=== PATIENT | female | born 1955 | race American Indian/Alaskan Native ===

== ENCOUNTER 2016-09-25 21:51 | Emergency (ER) | payer BC, OTHER ==
[2016-09-25 22:06] VITALS: BP 132/73
[2016-09-25 22:45] LABS: Anion Gap 19 mmol/L; BUN/Creatinine Ratio 25.55; Blood Urea Nitrogen 23 mg/dL (7-17); Calcium 8.6 mg/dL (8.4-10.2); Carbon Dioxide 21 mmol/L (22-30); Chloride 101.9 mmol/L (98-107); Glucose 140 mg/dL (65-100); Potassium 3.9 mmol/L (3.6-5.0); Sodium 138 mmol/L (137-145)
[2016-09-25 22:58] LABS: Basophils % (Auto) 0.4 % (0.0-1.8); Eosinophils % (Auto) 2.4 % (0.0-4.3); Hematocrit 40.3 % (30.3-42.9); Hemoglobin 13.2 gm/dl (10.1-14.3); Mean Corpuscular HGB Conc 33 % (30-34); Mean Corpuscular Hemoglobin 30 pg (28-32); Mean Corpuscular Volume 92 fl (79-97); Platelet Count 271 K/mm3 (140-440); Red Blood Count 4.38 M/mm3 (3.65-5.03)
[2016-09-25] MEDS: DUONEB 0.5 MG-3 MG/3 ML SOLN IH ONE (23:16)
--- NOTE | 2016-09-26 00:18 | Emergency Department Report ---
ED Shortness of Breath HPI - General Chief Complaint: Dyspnea/Respdistress Stated Complaint: ASTHMA Time Seen by Provider: 09/25/16 22:33 Source: patient, EMS Mode of arrival: Stretcher Limitations: No Limitations - History of Present Illness Initial Comments: 60-year-old female with history of asthma with prior intubation a few years ago presenting today because of shortness of breath. Patient states that earlier today she started having a little bit of a cough and nasal congestion. She took some of her inhaler but was not improving. Called EMS who gave her steroids and albuterol with significant improvement. By the time she is coming here she is minimally symptomatic. No fevers or chills. He sees a cuffer regularly. - Related Data Previous Rx's Medication Instructions Recorded Last Taken Type predniSONE [Deltasone] 50 mg PO QDAY #5 tab 09/26/16 Unknown Rx Allergies Allergy/AdvReac Type Severity Reaction Status Date / Time No Known Allergies Allergy Verified 04/16/16 09:43 ED Review of Systems ROS: Stated complaint: ASTHMA Other details as noted in HPI Comment: All other systems reviewed and negative Constitutional: denies: chills, fever ENT: congestion Respiratory: cough Cardiovascular: denies: chest pain Gastrointestinal: denies: abdominal pain, nausea, vomiting Genitourinary: denies: urgency, dysuria Neurological: denies: headache Psychiatric: denies: anxiety ED Past Medical Hx - Past Medical History Previous Medical History?: Yes Hx Hypertension: Yes Hx Asthma: Yes - Surgical History Past Surgical History?: No - Social History Smoking Status: Never Smoker Substance Use Type: None - Medications Home Medications: Home Medications Medication Instructions Recorded Confirmed Last Taken Type predniSONE [Deltasone] 50 mg PO QDAY #5 tab 09/26/16 Unknown Rx ED Physical Exam - General Limitations: No Limitations General appearance: alert, in no apparent distress - Head Head exam: Present: atraumatic - Eye Eye exam: Present: normal appearance - ENT ENT exam: Present: normal exam - Respiratory Respiratory exam: Present: other (saturating 99% on room air, mild expiratory wheezing in all lung valencia). Absent: respiratory distress, stridor - Cardiovascular Cardiovascular Exam: Present: regular rate, normal rhythm - GI/Abdominal GI/Abdominal exam: Present: soft. Absent: distended, tenderness - Extremities Exam Extremities exam: Present: normal inspection - Neurological Exam Neurological exam: Present: alert, oriented X3 - Psychiatric Psychiatric exam: Present: normal affect - Skin Skin exam: Present: intact ED Course Vital Signs 09/25/16 09/25/16 09/25/16 22:02 22:30 23:16 Temperature 98.4 F Pulse Rate 106 H Pulse Rate [ 99 H Anterior Bilateral Throughout] Respiratory 20 24 Rate Respiratory 18 Rate [Anterior Bilateral Throughout] Blood Pressure 132/73 O2 Sat by Pulse 98 Oximetry 09/25/16 23:30 Temperature Pulse Rate Pulse Rate [ 98 H Anterior Bilateral Throughout] Respiratory Rate Respiratory 18 Rate [Anterior Bilateral Throughout] Blood Pressure O2 Sat by Pulse Oximetry ED Medical Decision Making - Lab Data Result diagrams: 09/25/16 22:40 09/25/16 22:11 - Medical Decision Making Chest x-ray, and labs reordered, realizes ordered Chest x-ray does not show any clear infiltrate, labs unremarkable other than mild leukocytosis, mild dehydration Symptoms significantly improved, no respiratory distress, patient saturating well on room air, stable for discharge Critical care attestation.: If time is entered above; I have spent that time in minutes in the direct care of this critically ill patient, excluding procedure time. ED Disposition Clinical Impression: Asthma exacerbation Disposition: DISCHARGED TO HOME OR SELFCARE Is pt being admited?: No Does the pt Need Aspirin: No Condition: Stable Additional Instructions: Please follow up with the primary care doctor and cuffer in the next 3-5 days. Return to emergency room if your symptoms significantly worsen or develop new symptoms. Prescriptions: predniSONE [Deltasone] 50 mg PO QDAY #5 tab Referrals: PRIMARY CARE, [Primary Care Provider] - 3-5 Days Time of Disposition: 00:12
--- NOTE | 2016-09-26 08:16 | XRay Report ---
ROUTINE CHEST, TWO VIEWS: History: Shortness of breath. PA and lateral views demonstrate the heart and mediastinal contour to be of normal size and shape. The lungs are clear and fully expanded and the soft tissues and bony structures are normal. IMPRESSION: Normal study.
== END 2016-09-26 00:45 | disposition home or self-care (01) ==
LOC: ED 21:51
DX: J45.901 Unspecified asthma with (acute) exacerbation (principal); I10 Essential (primary) hypertension
CPT/HCPCS: 36415; 71020; 80048; 84484; 85025; 94640; 99284

== ENCOUNTER 2016-12-20 11:57 | Outpatient (CLI) | payer BC ==
--- NOTE | 2016-12-20 12:30 | XRay Report ---
ROUTINE CHEST, TWO VIEWS: HISTORY: Shortness of breath, COPD. The trachea, heart, mediastinal contour, lung valencia and bony thorax are unremarkable. IMPRESSION: Unremarkable chest x-ray.
== END 2016-12-20 11:58 | disposition home or self-care (01) ==
LOC: XRAY 11:57
PROVIDERS: ATTEND Family Medicine
DX: J44.9 Chronic obstructive pulmonary disease, unspecified (principal); J45.909 Unspecified asthma, uncomplicated; I10 Essential (primary) hypertension
CPT/HCPCS: 71020

== ENCOUNTER 2017-04-04 06:03 | Day surgery (SDC) | payer BC ==
[2017-04-04] MEDS ORDERED: WATER FOR IRRIG STERILE IR ONE (07:06)
[2017-04-04] MEDS ORDERED: DIPRIVAN 10 MG/ML IV ONE ×2 (07:17)
--- NOTE | 2017-04-04 08:02 | Anesthesia Consultation ---
Anesthesia Consult and Med Hx Date of service: 04/04/17 - Airway Anesthetic Teeth Evaluation: Good ROM Head & Neck: Adequate Mental/Hyoid Distance: Adequate Mallampati Class: Class II Intubation Access Assessment: Probably Good - Pulmonary Exam CTA: Yes - Cardiac Exam Cardiac Exam: RRR Anesthetic Concerns: A few missing teeth - Pre-Operative Health Status ASA Pre-Surgery Classification: ASA3 Proposed Anesthetic Plan: MAC - Pulmonary Hx Smoking: No (NEVER SMOKER) Hx Asthma: Yes (occasional steroid use) COPD: Yes - Cardiovascular System Hx Hypertension: Yes - Other Systems Hx Alcohol Use: Yes (OCCASIONALLY) Hx Obesity: Yes
--- NOTE | 2017-04-04 08:03 | Anesthesia Day of Surgery ---
Anesthesia Day of Surgery - Day of Surgery Patient Examined: Yes Patient H&P Reviewed: Yes Patient is NPO: Yes
[2017-04-04] MEDS ORDERED: NACL 0.9% 1000 ML 1,000 ML IV SCH (09:00)
--- NOTE | 2017-04-04 09:24 | Short Stay Summary ---
Short Stay Documentation - Allergies and Medications Current Medications: Allergies No Known Allergies Allergy (Verified 04/16/16 09:43) Home Medications Medication Instructions Recorded Confirmed Last Taken Type predniSONE [Deltasone] 50 mg PO QDAY #5 tab 09/26/16 04/04/17 Unknown Rx ALBUTEROL Inhaler 2 puff INHALATION BID 04/03/17 04/04/17 04/03/17 History Advair 100-50 Diskus 2 puff INHALATION BID 04/03/17 04/04/17 04/04/17 History Lisinopril 20 mg PO DAILY 04/03/17 04/04/17 04/03/17 History Montelukast 10 mg PO DAILY 04/03/17 04/04/17 04/03/17 History amLODIPine 5 mg PO DAILY 04/03/17 04/04/17 04/03/17 History Active Medications Sodium Chloride (Nacl 0.9% 1000 Ml) 1,000 mls @ 50 mls/hr IV DIRECT MARK Last Admin: 04/04/17 08:46 Dose: 50 mls/hr - Brief post op/procedure progress note Date of procedure: 04/04/17 Pre-op diagnosis: colon cancer screening Post-op diagnosis: same (1. Internal hemorrhoids 2. Poor prep) Procedure: colonoscopy Anesthesia: MAC Findings: as above Surgeon: ANIL NAVA Estimated blood loss: none Pathology: none Condition: stable - Disposition Condition at discharge: Stable Disposition: DC-01 TO HOME OR SELFCARE Short Stay Discharge Plan Weight Bearing Status: Full Weight Bearing Diet: regular Follow up with: DAMIEN DANIELS JR, MD [Primary Care Provider] - 7 Days
[2017-04-04 09:50] VITALS: BP 132/70
--- NOTE | 2017-04-04 10:16 | Post Anesthesia Evaluation ---
- Post Anesthesia Evaluation Patient Participated: Yes Airway Patent: Yes Stable Respiratory Function: Yes Temp > 96.8F: Yes Pain Manageable: Yes Adequeate Hydration: Yes Anesthesia Complications: No
== END 2017-04-04 06:04 | disposition home or self-care (01) ==
LOC: GIO 06:03
PROVIDERS: ATTEND Internal Medicine Gastroenterology
DX: Z12.11 Encounter for screening for malignant neoplasm of colon (principal); K64.0 First degree hemorrhoids; J44.9 Chronic obstructive pulmonary disease, unspecified; I10 Essential (primary) hypertension; E66.9 Obesity, unspecified; Z68.36 Body mass index [BMI] 36.0-36.9, adult
CPT/HCPCS: 45378; J2704; J7030

== ENCOUNTER 2017-06-24 06:37 | Emergency (ER) | payer BC ==
[2017-06-24] MEDS ORDERED: DUONEB *Not for PRN Use IH ONE (07:12)
--- NOTE | 2017-06-24 07:15 | Emergency Department Report ---
ED General Adult HPI - General Chief complaint: Dyspnea/Respdistress Stated complaint: ANN Time Seen by Provider: 06/24/17 07:05 Source: patient Mode of arrival: Stretcher Limitations: No Limitations - History of Present Illness Initial comments: This is a patient with COPD and exacerbation of the last day. She states he's had a scant amount of yellow sputum and feels as if she had a cold. She denies chest pain. She denies leg swelling. She's had no fever or chills. She denies abdominal pain. She's had no recent travel. She denies any history of cardiovascular disease. The patient was given magnesium albuterol nebs and Solu-Medrol in the field. She arrives in the emergency department with persistent wheezing but is not in respiratory distress. -: Gradual, hour(s) Severity scale (0 -10): 0 Associated Symptoms: denies other symptoms, shortness of breath (wheezing) Treatments Prior to Arrival: none - Related Data Home Medications Medication Instructions Recorded Confirmed Last Taken ALBUTEROL Inhaler 2 puff INHALATION BID 04/03/17 04/04/17 04/03/17 Advair 100-50 Diskus 2 puff INHALATION BID 04/03/17 04/04/17 04/04/17 Lisinopril 20 mg PO DAILY 04/03/17 04/04/17 04/03/17 Montelukast 10 mg PO DAILY 04/03/17 04/04/17 04/03/17 amLODIPine 5 mg PO DAILY 04/03/17 04/04/17 04/03/17 Previous Rx's Medication Instructions Recorded Last Taken Type predniSONE [Deltasone] 50 mg PO QDAY #5 tab 09/26/16 Unknown Rx ALBUTEROL Inhaler [ProAir HFA 2 puff IH QID PRN #1 inhalation 06/24/17 Unknown Rx Inhaler] ALBUTEROL NEB's [Proventil 0.083% 2.5 mg IH TID PRN #90 neb 06/24/17 Unknown Rx NEBS] Mometasone Furoate [Asmanex] 1 inhalation IH QPM #1 inhalation 06/24/17 Unknown Rx predniSONE [Deltasone] 60 mg PO QDAY #20 tab 06/24/17 Unknown Rx Allergies Allergy/AdvReac Type Severity Reaction Status Date / Time No Known Allergies Allergy Verified 04/16/16 09:43 ED Review of Systems ROS: Stated complaint: ANN Other details as noted in HPI Constitutional: denies: chills, fever Eyes: denies: eye pain, eye discharge, vision change ENT: denies: ear pain, throat pain Respiratory: cough, shortness of breath, wheezing Cardiovascular: denies: chest pain, palpitations Endocrine: no symptoms reported Gastrointestinal: denies: abdominal pain, nausea, diarrhea Genitourinary: denies: urgency, dysuria, discharge Musculoskeletal: denies: back pain, joint swelling, arthralgia Skin: denies: rash, lesions Neurological: denies: headache, weakness, paresthesias Psychiatric: denies: anxiety, depression Hematological/Lymphatic: denies: easy bleeding, easy bruising ED Past Medical Hx - Past Medical History Previous Medical History?: Yes Hx Hypertension: Yes Hx Asthma: Yes (occasional steroid use) Hx COPD: Yes - Surgical History Past Surgical History?: No - Social History Smoking Status: Never Smoker Substance Use Type: None - Medications Home Medications: Home Medications Medication Instructions Recorded Confirmed Last Taken Type predniSONE [Deltasone] 50 mg PO QDAY #5 tab 09/26/16 04/04/17 Unknown Rx ALBUTEROL Inhaler 2 puff INHALATION BID 04/03/17 04/04/17 04/03/17 History Advair 100-50 Diskus 2 puff INHALATION BID 04/03/17 04/04/17 04/04/17 History Lisinopril 20 mg PO DAILY 04/03/17 04/04/17 04/03/17 History Montelukast 10 mg PO DAILY 04/03/17 04/04/17 04/03/17 History amLODIPine 5 mg PO DAILY 04/03/17 04/04/17 04/03/17 History ALBUTEROL Inhaler [ProAir HFA 2 puff IH QID PRN #1 inhalation 06/24/17 Unknown Rx Inhaler] ALBUTEROL NEB's [Proventil 0.083% 2.5 mg IH TID PRN #90 neb 06/24/17 Unknown Rx NEBS] Mometasone Furoate [Asmanex] 1 inhalation IH QPM #1 inhalation 06/24/17 Unknown Rx predniSONE [Deltasone] 60 mg PO QDAY #20 tab 06/24/17 Unknown Rx ED Physical Exam - General Limitations: No Limitations General appearance: alert, in no apparent distress - Head Head exam: Present: atraumatic, normocephalic - Eye Eye exam: Present: normal appearance. Absent: scleral icterus - ENT ENT exam: Present: mucous membranes moist - Neck Neck exam: Present: normal inspection - Respiratory Respiratory exam: Present: wheezes. Absent: normal lung sounds bilaterally, respiratory distress, accessory muscle use - Cardiovascular Cardiovascular Exam: Present: regular rate, normal rhythm. Absent: systolic murmur, diastolic murmur, rubs, gallop - GI/Abdominal GI/Abdominal exam: Present: soft, normal bowel sounds. Absent: distended, tenderness, guarding, rebound, rigid - Extremities Exam Extremities exam: Present: normal inspection - Back Exam Back exam: Present: normal inspection - Neurological Exam Neurological exam: Present: alert, oriented X3, CN II-XII intact. Absent: motor sensory deficit - Psychiatric Psychiatric exam: Present: normal affect, normal mood - Skin Skin exam: Present: warm, dry, intact, normal color. Absent: rash ED Course Vital Signs 06/24/17 06/24/17 06/24/17 06:52 07:37 07:43 Temperature 97.7 F Pulse Rate 106 H Pulse Rate [ 78 Anterior Bilateral Throughout] Respiratory 22 Rate Respiratory 20 Rate [Anterior Bilateral Throughout] Blood Pressure 170/96 Blood Pressure 170/96 [Left] O2 Sat by Pulse 100 100 Oximetry 06/24/17 08:19 Temperature Pulse Rate Pulse Rate [ 95 H Anterior Bilateral Throughout] Respiratory Rate Respiratory 20 Rate [Anterior Bilateral Throughout] Blood Pressure Blood Pressure [Left] O2 Sat by Pulse Oximetry - Reevaluation(s) Reevaluation #1: Wheezing improved. Patient states that she feels well enough to go home. Awaiting lab tests. 06/24/17 08:33 ED Medical Decision Making - Lab Data Result diagrams: 06/24/17 07:22 06/24/17 07:22 Laboratory Results - last 24 hr 06/24/17 06/24/17 07:22 07:22 WBC 8.5 RBC 4.38 Hgb 13.1 Hct 40.8 MCV 93 MCH 30 MCHC 32 RDW 13.5 Plt Count 252 Lymph % (Auto) 36.8 H [place] % (Auto) 7.4 H Eos % (Auto) 5.7 H Baso % (Auto) 0.7 Lymph # 3.1 [place] # 0.6 Eos # 0.5 H Baso # 0.1 Seg Neutrophils % 49.4 Seg Neutrophils # 4.2 Sodium 142 Potassium 3.0 L Chloride 101.3 Carbon Dioxide 25 Anion Gap 19 BUN 14 Creatinine 0.6 L Estimated GFR > 60 BUN/Creatinine Ratio 23 Glucose 130 H Calcium 8.8 Laboratory Results - last 24 hr 06/24/17 06/24/17 07:22 07:22 WBC 8.5 RBC 4.38 Hgb 13.1 Hct 40.8 MCV 93 MCH 30 MCHC 32 RDW 13.5 Plt Count 252 Lymph % (Auto) 36.8 H [place] % (Auto) 7.4 H Eos % (Auto) 5.7 H Baso % (Auto) 0.7 Lymph # 3.1 [place] # 0.6 Eos # 0.5 H Baso # 0.1 Seg Neutrophils % 49.4 Seg Neutrophils # 4.2 Sodium 142 Potassium 3.0 L Chloride 101.3 Carbon Dioxide 25 Anion Gap 19 BUN 14 Creatinine 0.6 L Estimated GFR > 60 BUN/Creatinine Ratio 23 Glucose 130 H Calcium 8.8 Laboratory Results - last 24 hr 06/24/17 06/24/17 07:22 07:22 WBC 8.5 RBC 4.38 Hgb 13.1 Hct 40.8 MCV 93 MCH 30 MCHC 32 RDW 13.5 Plt Count 252 Lymph % (Auto) 36.8 H [place] % (Auto) 7.4 H Eos % (Auto) 5.7 H Baso % (Auto) 0.7 Lymph # 3.1 [place] # 0.6 Eos # 0.5 H Baso # 0.1 Seg Neutrophils % 49.4 Seg Neutrophils # 4.2 Sodium 142 Potassium 3.0 L Chloride 101.3 Carbon Dioxide 25 Anion Gap 19 BUN 14 Creatinine 0.6 L Estimated GFR > 60 BUN/Creatinine Ratio 23 Glucose 130 H Calcium 8.8 Laboratory Results - last 24 hr 06/24/17 06/24/17 06/24/17 07:22 07:22 09:40 WBC 8.5 RBC 4.38 Hgb 13.1 Hct 40.8 MCV 93 MCH 30 MCHC 32 RDW 13.5 Plt Count 252 Lymph % (Auto) 36.8 H [place] % (Auto) 7.4 H Eos % (Auto) 5.7 H Baso % (Auto) 0.7 Lymph # 3.1 [place] # 0.6 Eos # 0.5 H Baso # 0.1 Seg Neutrophils % 49.4 Seg Neutrophils # 4.2 PT 13.5 INR 0.98 APTT 29.2 Sodium 142 Potassium 3.0 L Chloride 101.3 Carbon Dioxide 25 Anion Gap 19 BUN 14 Creatinine 0.6 L Estimated GFR > 60 BUN/Creatinine Ratio 23 Glucose 130 H Calcium 8.8 Total Bilirubin Direct Bilirubin AST ALT Alkaline Phosphatase Troponin T NT-Pro-B Natriuret Pep Total Protein Albumin Albumin/Globulin Ratio 06/24/17 09:40 WBC RBC Hgb Hct MCV MCH MCHC RDW Plt Count Lymph % (Auto) Laurel % (Auto) Eos % (Auto) Baso % (Auto) Lymph # Laurel # Eos # Baso # Seg Neutrophils % Seg Neutrophils # PT INR APTT Sodium Potassium Chloride Carbon Dioxide Anion Gap BUN Creatinine Estimated GFR BUN/Creatinine Ratio Glucose Calcium Total Bilirubin 0.40 Direct Bilirubin < 0.2 AST 19 ALT 15 Alkaline Phosphatase 93 Troponin T < 0.010 NT-Pro-B Natriuret Pep 42.30 Total Protein 7.6 Albumin 4.2 Albumin/Globulin Ratio 1.2 - EKG Data -: EKG Interpreted by [place] EKG shows normal: sinus rhythm, intervals, QRS complexes, ST-T waves - EKG Data Interpretation: other (somewhat low voltage left axis deviation no ischemic changes) - Radiology Data Radiology results: report reviewed (chest x-ray shows no acute findings) Critical care attestation.: If time is entered above; I have spent that time in minutes in the direct care of this critically ill patient, excluding procedure time. ED Disposition Clinical Impression: COPD exacerbation, Hypokalemia Disposition: - TO HOME OR SELFCARE Is pt being admited?: No Does the pt Need Aspirin: No Condition: Stable Instructions: Chronic Obstructive Pulmonary Disease (ED), Hypokalemia (ED) Additional Instructions: Follow-up with your primary care provider. Rx prednisone, inhaler and albuterol for a urine machine as needed. I'll also prescribed an inhaled steroid. I'm giving name of a primary care provider and a lung specialist Dr. Johnson. Prescriptions: ALBUTEROL Inhaler [ProAir HFA Inhaler] 2 puff IH QID PRN #1 inhalation PRN Reason: Shortness Of Breath ALBUTEROL NEB's [Proventil 0.083% NEBS] 2.5 mg IH TID PRN #90 neb PRN Reason: Wheezing Mometasone Furoate [Asmanex] 1 inhalation IH QPM #1 inhalation predniSONE [Deltasone] 60 mg PO QDAY #20 tab Referrals: LALITHA BEARDEN MD [Primary Care Provider] - 3-5 Days ANDREZ JOHNSON MD [Staff Physician] - 3-5 Days Time of Disposition: 10:37
[2017-06-24 07:32] LABS: Basophils # (Auto) 0.1 K/mm3 (0.0-0.1); Basophils % (Auto) 0.7 % (0.0-1.8); Eosinophils # (Auto) 0.5 K/mm3 (0.0-0.4); Eosinophils % (Auto) 5.7 % (0.0-4.3); Hematocrit 40.8 % (30.3-42.9); Hemoglobin 13.1 gm/dl (10.1-14.3); Lymphocytes # (Auto) 3.1 K/mm3 (1.2-5.4); Lymphocytes % (Auto) 36.8 % (13.4-35.0); Mean Corpuscular HGB Conc 32 % (30-34); Mean Corpuscular Hemoglobin 30 pg (28-32); Mean Corpuscular Volume 93 fl (79-97); Monocytes # (Auto) 0.6 K/mm3 (0.0-0.8); Monocytes % (Auto) 7.4 % (0.0-7.3); Platelet Count 252 K/mm3 (140-440); Red Blood Count 4.38 M/mm3 (3.65-5.03); Red Cell Distribution Width 13.5 % (13.2-15.2)
--- NOTE | 2017-06-24 07:37 | XRay Report ---
FINAL REPORT EXAM: XR CHEST 1V AP HISTORY: Dyspnea TECHNIQUE: AP portable view(s) of the chest obtained. PRIORS: None. FINDINGS: No mediastinal shift. Cardiac silhouette is not enlarged. Hyperaeration of the lungs and flattening of the hemidiaphragms. No pneumothorax, effusion, or focal pulmonary opacity identified. No acute skeletal findings. IMPRESSION: No acute pulmonary finding identified. Suggested sequela of COPD.
[2017-06-24 07:52] LABS: BUN/Creatinine Ratio 23; Blood Urea Nitrogen 14 mg/dL (7-17); Calcium 8.8 mg/dL (8.4-10.2); Hemolysis Index 2
[2017-06-24] MEDS ORDERED: K-DUR PO ONE (07:57)
[2017-06-24 10:11] LABS: INR 0.98 (0.87-1.13); Partial Thromboplastin Time 29.2 Sec. (24.2-36.6)
[2017-06-24 10:13] LABS: Alanine Aminotransferase 15 units/L (7-56); Albumin 4.2 g/dL (3.9-5)
[2017-06-24 10:32] LABS: Bilirubin,Direct < 0.2 mg/dL (0-0.2)
[2017-06-24 10:49] VITALS: BP 138/76
== END 2017-06-24 10:55 | disposition home or self-care (01) ==
LOC: ED 06:37
DX: J44.1 Chronic obstructive pulmonary disease with (acute) exacerbation (principal); E87.6 Hypokalemia; J45.909 Unspecified asthma, uncomplicated; I10 Essential (primary) hypertension; Z79.82 Long term (current) use of aspirin
CPT/HCPCS: 36415; 71045; 80048; 80074; 83880; 84484; 85025; 85610; 85730; 93005; 93010; 94640

== ENCOUNTER 2017-08-18 14:49 | Inpatient (IN) | payer BC ==
[~2017-08-18 14:49] MED LIST: ADRENALIN ONE; CALCIUM CHLORIDE IV ONE; SODIUM BICARBONATE IV ONE; XYLOCAINE CARDIAC IV ONE
[2017-08-18] MEDS ORDERED: ARTIFICIAL TEARS OPHTH OINT OU PRN (15:12)
[2017-08-18] MEDS ORDERED: VASELINE LIP THERAPY TP PRN (15:12)
[2017-08-18] MEDS ORDERED: NACL 0.9% 500 ML 500 ML IV ONE (15:12)
[2017-08-18] MEDS: LEVOPHED DRIP 4 MG/NS 250 ML 4 MG/250 ML BAG IV SCH ×2 (15:20→21:19)
[2017-08-18 15:45] LABS: INR 1.42 (0.87-1.13)
[2017-08-18] MEDS ORDERED: ADRENALIN ONE (15:45)
[2017-08-18] MEDS ORDERED: D50W (25GM) Syringe IV ONE (15:45)
[2017-08-18] MEDS ORDERED: SODIUM BICARBONATE IV ONE ×2 (15:45→16:06)
[2017-08-18 15:57] LABS: Albumin 3.3 g/dL (3.9-5); Calcium 7.9 mg/dL (8.4-10.2); Creatine Kinase MB 1.9 ng/mL (0.0-4.0)
[2017-08-18] MEDS ORDERED: NACL 0.9% 1000 ML IV ONE (15:57)
[2017-08-18 15:59] LABS: Bilirubin,Urine NEG (Negative); Blood,Urine NEG (Negative); Color,Urine Yellow (Yellow); Mucus,Urine FEW /HPF; Protein,Urine <15 mg/dL mg/dL (Negative)
[2017-08-18] MEDS ORDERED: NACL 0.9% 500 ML IV SCH (16:00)
[2017-08-18] MEDS ORDERED: NACL 0.9% IV ONE (16:06)
[2017-08-18] MEDS ORDERED: ZOSYN/NS 4.5GM/100ML 4.5 GM/100 ML VIAL IV ONE (16:30)
--- NOTE | 2017-08-18 16:32 | Emergency Department Report ---
ED CPR HPI - General Chief Complaint: Cardiac Arrest/CPR Stated Complaint: CARDIAC ARREST Time Seen by Provider: 08/18/17 15:37 Source: EMS Mode of arrival: Ambulatory Limitations: No Limitations - History of Present Illness Initial Comments: Patient is a 61-year-old female past medical history of asthma COPD and hypertension who is presenting cardiac arrest. Patient's family called 911 because of diaphoresis and shortness of breath. When EMS arrived they initiated ACLS protocol. The patient was in PEA most of the ride to the emergency department. MD Complaint: stopped breathing -: minute(s) (30 prior to arrival) Place: home Initial Findings in the Field: agonal, PEA ROSC in the Field: No Associated Injuries: No Associated Symptoms: shortness of breath Treatments Prior to Arrival: chest compressions, epinephrine mgs # (1) - Related Data Home Medications Medication Instructions Recorded Confirmed Last Taken ALBUTEROL Inhaler 2 puff INHALATION BID 04/03/17 04/04/17 04/03/17 Advair 100-50 Diskus 2 puff INHALATION BID 04/03/17 04/04/17 04/04/17 Lisinopril 20 mg PO DAILY 04/03/17 04/04/17 04/03/17 Montelukast 10 mg PO DAILY 04/03/17 04/04/17 04/03/17 amLODIPine 5 mg PO DAILY 04/03/17 04/04/17 04/03/17 Previous Rx's Medication Instructions Recorded Last Taken Type predniSONE [Deltasone] 50 mg PO QDAY #5 tab 09/26/16 Unknown Rx ALBUTEROL Inhaler [ProAir HFA 2 puff IH QID PRN #1 inhalation 06/24/17 Unknown Rx Inhaler] ALBUTEROL NEB's [Proventil 0.083% 2.5 mg IH TID PRN #90 neb 06/24/17 Unknown Rx NEBS] Mometasone Furoate [Asmanex] 1 inhalation IH QPM #1 inhalation 06/24/17 Unknown Rx predniSONE [Deltasone] 60 mg PO QDAY #20 tab 06/24/17 Unknown Rx Allergies Allergy/AdvReac Type Severity Reaction Status Date / Time Unable to Assess Allergy Unverified 08/18/17 15:04 ED Review of Systems ROS: Stated complaint: CARDIAC ARREST Other details as noted in HPI Comment: Unobtainable due to pts medical conditions ED Past Medical Hx - Past Medical History Previous Medical History?: Yes Hx Hypertension: Yes Hx Asthma: Yes (occasional steroid use) Hx COPD: Yes - Surgical History Past Surgical History?: No - Social History Smoking Status: Unknown if ever smoked - Medications Home Medications: Home Medications Medication Instructions Recorded Confirmed Last Taken Type predniSONE [Deltasone] 50 mg PO QDAY #5 tab 09/26/16 04/04/17 Unknown Rx ALBUTEROL Inhaler 2 puff INHALATION BID 04/03/17 04/04/17 04/03/17 History Advair 100-50 Diskus 2 puff INHALATION BID 04/03/17 04/04/17 04/04/17 History Lisinopril 20 mg PO DAILY 04/03/17 04/04/17 04/03/17 History Montelukast 10 mg PO DAILY 04/03/17 04/04/17 04/03/17 History amLODIPine 5 mg PO DAILY 04/03/17 04/04/17 04/03/17 History ALBUTEROL Inhaler [ProAir HFA 2 puff IH QID PRN #1 inhalation 06/24/17 Unknown Rx Inhaler] ALBUTEROL NEB's [Proventil 0.083% 2.5 mg IH TID PRN #90 neb 06/24/17 Unknown Rx NEBS] Mometasone Furoate [Asmanex] 1 inhalation IH QPM #1 inhalation 06/24/17 Unknown Rx predniSONE [Deltasone] 60 mg PO QDAY #20 tab 06/24/17 Unknown Rx ED Physical Exam - General Limitations: No Limitations General appearance: obtunded - Head Head exam: Present: atraumatic - Eye Eye exam: Present: other (pupils are poorly responsive but are not dilated at this time.) - ENT ENT exam: Present: other (small amount of blood in the posterior pharynx probably secondary to an attempt at intubation by EMS) - Neck Neck exam: Present: normal inspection - Respiratory Respiratory exam: Present: other (there are no spontaneous breath sounds. Lungs are coarse with bagging.) - Cardiovascular Cardiovascular Exam: Present: other (no spontaneous heart tones) - GI/Abdominal GI/Abdominal exam: Present: soft, distended - Back Exam Back exam: Present: normal inspection - Skin Skin exam: Present: warm, intact, normal color. Absent: rash ED Course Vital Signs 08/18/17 08/18/17 08/18/17 14:52 15:04 15:06 Pulse Rate 105 H 135 H 129 H Respiratory 15 18 Rate Blood Pressure 99/61 Blood Pressure 121/88 [Left] O2 Sat by Pulse 100 64 L 74 L Oximetry 08/18/17 08/18/17 08/18/17 15:10 15:20 15:25 Pulse Rate 99 H 126 H 101 H Respiratory 18 19 14 Rate Blood Pressure 99/61 127/55 88/35 Blood Pressure [Left] O2 Sat by Pulse 47 L 91 Oximetry 08/18/17 16:21 Pulse Rate Respiratory 24 Rate Blood Pressure Blood Pressure [Left] O2 Sat by Pulse 100 Oximetry - ABG Interpretation Ph: [phone] Interpretation: metabolic acidosis - Central Line Placement Left IJ Consent Obtained: emergent situation Time Out Performed: Yes Patient Placed on Monitor/Pulse Ox: Yes MD Prep: gloves Central Line Prep: Chlorhexidine scrub, sterile drapes applied Ultrasound Used for Placement: Yes Central Line Lumen Inserted: triple Bloods Obtained for Lab: Yes Central Line Position: good blood return, all ports aspirated, flus, sutured in place with 2-0 Dressing Applied: Tegaderm Patient Tolerated Procedure: well - Intubation Time Out Performed: Yes Laryngoscope: Fabiana Size: 3 ET Tube Size: 7.5 Tube Secured Depth (cm): 22 Tube Secured Location: lips Tube Placement Confirmation: visualized tube passing t, equal breath sounds bilat, no breath sounds over epi, confirmation by capnometr Patient Tolerated Procedure: well Intubation Complications: none ED Medical Decision Making - Lab Data Result diagrams: 08/18/17 15:15 08/18/17 15:15 Lab Results 08/18/17 08/18/17 08/18/17 Range/Units 15:15 15:15 15:15 Lymph % (Auto) [employer] [place] % (Auto) 5.0 (0.0-7.3) % Eos % (Auto) 3.0 (0.0-4.3) % Lymph # [employer] Baso # 0.0 (0.0-0.1) K/mm3 Seg Neutrophils % [employer] PT 18.2 H (12.2-14.9) Sec. INR 1.42 H (0.87-1.13) D-Dimer > 68204 H (0-234) ng/mlDDU POC ABG pH (7.35-7.45) POC ABG pCO2 (35-45) POC ABG pO2 (80-105) POC ABG HCO3 POC ABG Total CO2 POC ABG O2 Sat POC ABG Base Excess VBG pH (7.320-7.420) FiO2 % Sodium 139 (137-145) mmol/L Potassium 3.6 (3.6-5.0) mmol/L Chloride 95.7 L (98-107) mmol/L Carbon Dioxide 15 L (22-30) mmol/L Anion Gap 32 mmol/L BUN 15 (7-17) mg/dL Creatinine 1.2 (0.7-1.2) mg/dL Estimated GFR 55 ml/min BUN/Creatinine Ratio 13 % Glucose 480 H (65-100) mg/dL Lactic Acid (0.7-2.0) mmol/L Calcium 7.9 L (8.4-10.2) mg/dL Total Bilirubin 0.30 (0.1-1.2) mg/dL AST 55 H (5-40) units/L ALT 72 H (7-56) units/L Alkaline Phosphatase 85 (35-129) units/L Total Creatine Kinase (30-135) units/L CK-MB (CK-2) (0.0-4.0) ng/mL CK-MB (CK-2) Rel Index (0-4) Troponin T (0.00-0.029) ng/mL NT-Pro-B Natriuret Pep (0-900) pg/mL Total Protein 5.6 L (6.3-8.2) g/dL Albumin 3.3 L (3.9-5) g/dL Albumin/Globulin Ratio 1.4 % Urine Color (Yellow) Urine Turbidity (Clear) Urine pH (5.0-7.0) Ur Specific [place] (1.003-1.030) Urine Protein (Negative) mg/dL Urine Glucose (UA) (Negative) mg/dL Urine Ketones (Negative) mg/dL Urine Blood (Negative) Urine Nitrite (Negative) Urine Bilirubin (Negative) Urine Urobilinogen (<2.0) mg/dL Ur Leukocyte Esterase (Negative) Urine WBC (Auto) (0.0-6.0) /HPF Urine RBC (Auto) (0.0-6.0) /HPF U Epithel Cells (Auto) (0-13.0) /HPF Urine Mucus /HPF 08/18/17 08/18/17 08/18/17 Range/Units 15:15 15:15 15:15 Lymph % (Auto) [place] % (Auto) (0.0-7.3) % Eos % (Auto) (0.0-4.3) % Lymph # Baso # (0.0-0.1) K/mm3 Seg Neutrophils % PT (12.2-14.9) Sec. INR (0.87-1.13) D-Dimer (0-234) ng/mlDDU POC ABG pH (7.35-7.45) POC ABG pCO2 (35-45) POC ABG pO2 (80-105) POC ABG HCO3 POC ABG Total CO2 POC ABG O2 Sat POC ABG Base Excess VBG pH 6.787 L* (7.320-7.420) FiO2 % Sodium (137-145) mmol/L Potassium (3.6-5.0) mmol/L Chloride (98-107) mmol/L Carbon Dioxide (22-30) mmol/L Anion Gap mmol/L BUN (7-17) mg/dL Creatinine (0.7-1.2) mg/dL Estimated GFR ml/min BUN/Creatinine Ratio % Glucose (65-100) mg/dL Lactic Acid 13.90 H* (0.7-2.0) mmol/L Calcium (8.4-10.2) mg/dL Total Bilirubin (0.1-1.2) mg/dL AST (5-40) units/L ALT (7-56) units/L Alkaline Phosphatase (35-129) units/L Total Creatine Kinase 170 H (30-135) units/L CK-MB (CK-2) 1.9 (0.0-4.0) ng/mL CK-MB (CK-2) Rel Index 1.1 (0-4) Troponin T < 0.010 (0.00-0.029) ng/mL NT-Pro-B Natriuret Pep < 5 (0-900) pg/mL Total Protein (6.3-8.2) g/dL Albumin (3.9-5) g/dL Albumin/Globulin Ratio % Urine Color (Yellow) Urine Turbidity (Clear) Urine pH (5.0-7.0) Ur Specific [place] (1.003-1.030) Urine Protein (Negative) mg/dL Urine Glucose (UA) (Negative) mg/dL Urine Ketones (Negative) mg/dL Urine Blood (Negative) Urine Nitrite (Negative) Urine Bilirubin (Negative) Urine Urobilinogen (<2.0) mg/dL Ur Leukocyte Esterase (Negative) Urine WBC (Auto) (0.0-6.0) /HPF Urine RBC (Auto) (0.0-6.0) /HPF U Epithel Cells (Auto) (0-13.0) /HPF Urine Mucus /HPF 08/18/17 08/18/17 Range/Units 15:49 16:22 Lymph % (Auto) [place] % (Auto) (0.0-7.3) % Eos % (Auto) (0.0-4.3) % Lymph # Baso # (0.0-0.1) K/mm3 Seg Neutrophils % PT (12.2-14.9) Sec. INR (0.87-1.13) D-Dimer (0-234) ng/mlDDU POC ABG pH 7.161 L (7.35-7.45) POC ABG pCO2 73.3 H (35-45) POC ABG pO2 243 H (80-105) POC ABG HCO3 26.2 POC ABG Total CO2 28 POC ABG O2 Sat 100 POC ABG Base Excess -2 VBG pH (7.320-7.420) FiO2 100 % Sodium (137-145) mmol/L Potassium (3.6-5.0) mmol/L Chloride (98-107) mmol/L Carbon Dioxide (22-30) mmol/L Anion Gap mmol/L BUN (7-17) mg/dL Creatinine (0.7-1.2) mg/dL Estimated GFR ml/min BUN/Creatinine Ratio % Glucose (65-100) mg/dL Lactic Acid (0.7-2.0) mmol/L Calcium (8.4-10.2) mg/dL Total Bilirubin (0.1-1.2) mg/dL AST (5-40) units/L ALT (7-56) units/L Alkaline Phosphatase (35-129) units/L Total Creatine Kinase (30-135) units/L CK-MB (CK-2) (0.0-4.0) ng/mL CK-MB (CK-2) Rel Index (0-4) Troponin T (0.00-0.029) ng/mL NT-Pro-B Natriuret Pep (0-900) pg/mL Total Protein (6.3-8.2) g/dL Albumin (3.9-5) g/dL Albumin/Globulin Ratio % Urine Color Yellow (Yellow) Urine Turbidity Clear (Clear) Urine pH 6.0 (5.0-7.0) Ur Specific [place] 1.021 (1.003-1.030) Urine Protein <15 mg/dl (Negative) mg/dL Urine Glucose (UA) Neg (Negative) mg/dL Urine Ketones Neg (Negative) mg/dL Urine Blood Neg (Negative) Urine Nitrite Neg (Negative) Urine Bilirubin Neg (Negative) Urine Urobilinogen 4.0 (<2.0) mg/dL Ur Leukocyte Esterase Neg (Negative) Urine WBC (Auto) 1.0 (0.0-6.0) /HPF Urine RBC (Auto) 1.0 (0.0-6.0) /HPF U Epithel Cells (Auto) < 1.0 (0-13.0) /HPF Urine Mucus Few /HPF - EKG Data -: EKG Interpreted by Az - EKG Data Interpretation: other (initial EKG during the first period of return of spontaneous circulation showed A. fib at a rate of 75 there were normal axis normal intervals and ST depression inferior lateral leads is no ST elevation, interpretation 1459. 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 Patient was not intubated on arrival. I intubated her with a 7.5 endotracheal tube with no complications. The patient also underwent traditional ACLS protocols. Please see code sheet on nursing documentation. Patient on 3 different occasions did regain spontaneous circulation but would then lose her pulse. During the last episode of pulseless activity the patient was noted to be in sinus tachycardia ultrasound was used to see very strong cardiac activity. Pulses were still faint. Patient was started on Aleve drip and pulses were again palpable. With a drip before patient with the CT was added 30 mics. Patient was taken to CT to rule out PE and aortic dissection. These tests are pending at this time. Patient will be admitted to the ICU at this time by Dr. Monzon. Patient admitted in critical status. Critical Care Time: Yes Critical care time in (mins) excluding proc time.: 75 Critical care attestation.: If time is entered above; I have spent that time in minutes in the direct care of this critically ill patient, excluding procedure time. ED Disposition Clinical Impression: Cardiac arrest Disposition: OP ADMIT IP TO THIS HOSP Is pt being admited?: Yes Does the pt Need Aspirin: No Condition: Critical Referrals: PRIMARY CARE, [Primary Care Provider] - 3-5 Days
[2017-08-18 16:34] LABS: Hematocrit 39.4 % (30.3-42.9); Hemoglobin 12.2 gm/dl (10.1-14.3); Mean Corpuscular HGB Conc 31 % (30-34); Mean Corpuscular Hemoglobin 31 pg (28-32); Mean Corpuscular Volume 100 fl (79-97); Red Blood Count 3.95 M/mm3 (3.65-5.03); Red Cell Distribution Width 14.7 % (13.2-15.2)
[2017-08-18 16:35] LABS: Platelet Count 169 K/mm3 (140-440)
[2017-08-18] MEDS ORDERED: PROVENTIL IH PRN (16:47)
[2017-08-18] MEDS ORDERED: SODIUM CHLORIDE FLUSH SYRINGE 10 ML IV PRN (16:47)
--- NOTE | 2017-08-18 17:08 | Cat Scan Report ---
FINAL REPORT PROCEDURE: CT HEAD/BRAIN WO CON TECHNIQUE: Computerized tomography of the head was performed without contrast material. HISTORY: AMS COMPARISON: No prior studies are available for comparison. FINDINGS: Ventricles are normal size and are midline. No intracranial hemorrhage is visualized. Rankin-white matter junction is poorly defined on this exam. The brain density appears homogeneous. I cannot exclude a diffuse anoxic event. No abnormal extra-axial fluid collections or masses are identified. There is mild bilateral maxillary sinus mucosal thickening. Small air-fluid level present in the right maxillary sinus. There is diffuse mucosal thickening in the ethmoid air cells. Mild mucosal thickening seen in the sphenoid sinuses. Mild mucosal thickening seen medially in both frontal sinuses. IMPRESSION: Abnormal homogeneous density of the brain as described with lack of rankin-white matter density differentiation. Findings are worrisome for a diffuse anoxic injury. No hemorrhage is seen. No mass effect is identified. Diffuse paranasal sinus disease as described. Air-fluid levels suggest acute sinusitis. These findings were discussed in detail with Dr. Draper on 08/18/2017 at 5:01 p.m. Eastern standard time.
--- NOTE | 2017-08-18 17:20 | Cat Scan Report ---
FINAL REPORT PROCEDURE: CT ANGIO CHEST TECHNIQUE: Computerized tomographic angiography of the chest was performed after the IV injection of iodinated nonionic contrast including image processing. The image data was postprocessed using 2-dimensional multiplanar reformatted (MPR) and 3-dimensional (MIP and/or volume rendered) techniques. HISTORY: decr pulses dispite strong US cardiac act COMPARISON: No prior studies are available for comparison. FINDINGS: Pulmonary outflow tract, right and left main pulmonary arteries and their proximal branches: Clear, no filling defects seen to suggest pulmonary embolus. Pericardium: No evidence of pericardial effusion. Thoracic aorta: No evidence of aneurysmal dilatation or dissection. Coronary arteries: Are unremarkable. Mediastinum and hilar regions: Nonspecific subcentimeter lymph nodes are visualized. No pathologically enlarged lymph nodes or masses are identified. Lung [place]: There is dense consolidation in the right upper lobe and also right middle lobe. Right upper lobe bronchus appears occluded. This could represent mucous plugs or mass. There is mild patchy peripheral density in the right lower lobe probably representing atelectasis. There is minimal atelectasis on the left. There is no pneumothorax or pleural effusion identified. Upper abdomen: No acute or focal abnormality is seeen. Other: Endotracheal tube in place. The tip lies 2.4 centimeter above the alf. Left jugular central venous line in place. The tip projects in the mid innominate vein. IMPRESSION: No evidence of pulmonary embolus. Dense consolidation right upper lobe right middle lobe and obstruction of the bronchus may be due to mucous plugging or aspiration. I cannot exclude a mass. Small amount of atelectasis appears to be present in the right lower lobe and left lung. No effusions or pneumothorax are visualized. Endotracheal tube and left subclavian central venous line as described. There is a nondisplaced fracture through the left 3rd and 4th ribs anterior lateral there is a minimally displaced fracture through the left 5th rib anterior lateral. Nondisplaced fracture seen through the anterior lateral aspect right 2nd, right 4th rib
--- NOTE | 2017-08-18 17:29 | Cat Scan Report ---
FINAL REPORT PROCEDURE: CT ANGIO ABDOMEN PELVIS TECHNIQUE: Computerized axial tomographic angiography of the abdomen and pelvis was performed after the IV injection of iodinated nonionic contrast. The image data was postprocessed using 2-dimensional multiplanar reformatted (MPR) and 3-dimensional (MIP and/or volume rendered) techniques. HISTORY: decr pulses dispite strong US cardiac act COMPARISON: No prior studies are available for comparison. FINDINGS: Lower Lung [place]: Dense consolidation visualized in the right middle lobe. There is some patchy atelectasis visualized in the right and left lower lobes. Upper Abdomen: Gallbladder wall appears irregularly thickened in there is some fluid collected in the gallbladder fossa. I cannot exclude acute cholecystitis. Liver density appears mildly decreased suggesting fatty infiltration. No discrete liver lesions are identified. Pancreas showed no focal abnormality. The spleen is not enlarged. No adrenal abnormalities are seen. Small amount of fluid is collected adjacent to the inferior medial aspect of the right lobe of the liver and adjacent to the inferior vena cava. Kidneys, Ureters and Urinary bladder: East catheter is seen in the urinary bladder which is nearly empty. Kidneys are unremarkable. Retroperitoneum: There is no evidence of abdominal aortic aneurysm occlusion or dissection. Celiac trunk and SMA are widely patent. The inferior mesenteric artery also appears widely patent. Single renal arteries are visualized bilaterally which appear widely patent. There is minimal calcified plaquing at the bifurcation of the left common iliac artery without significant stenosis. The right and left iliac arteries otherwise appear widely patent. Nonspecific subcentimeter lymph nodes are seen in the retroperitoneum. No pathologically enlarged lymph nodes are identified. Bowel: Small bowel loops proximally are fluid filled. The mucosal pattern appears mildly prominent proximally. I cannot exclude a mild nonspecific enteritis. I do not see evidence of bowel obstruction. No free intraperitoneal gas is seen. Reproductive organs: Uterus is enlarged and lobulated. There appear to be multiple uterine masses measuring up to 6.1 centimeters consistent with multiple uterine fibroids. Abnormal adnexal masses are seen. Other: Mildly displaced fracture visualize through the anterior lateral aspect of the left 6th rib. There also appears to be a nondisplaced fracture through the anterior lateral aspect of the left 5th rib. Nondisplaced fracture visualize through the anterior lateral aspect of the right 4th rib. IMPRESSION: Abdominal and pelvic vasculature appears intact. Wall thickening and fluid in the gallbladder fossa suggest the possibility of acute cholecystitis. Small amount of ascites is visualized in the upper abdomen. Mildly prominent mucosal folds small-bowel loops left upper quadrant. Small bowel loops are also fluid filled suggesting a mild nonspecific enteritis. Enlarged uterus with multiple fibroids suspected. Pelvic ultrasound could be obtained for further evaluation if clinically indicated. Mildly displaced acute rib fractures visualized bilaterally as described above.
[2017-08-18 17:38] LABS: Band Neutrophils # (Manual) 0.1 K/mm3; Basophils % (Manual) 0 % (0.0-1.8); Total Cells Counted 100
[2017-08-18 17:39] LABS: RBC Morphology Normal
--- NOTE | 2017-08-18 17:40 | History and Physical Report ---
History of Present Illness Date of admission: 08/18/17 16:47 Chief complaint: Unresponsive History of present illness: 61 YO female with HTN, COPD, Asthma presents to ED for evaluation. Pt unable to provide history. Pt history taken from ED staff, EMS, and medical record. As per family, the patient experienced shortness of breath and diaphoresis this morning. EMS was notified, and upon arrival the patient was found to be in respiratory distress, and subsequently became unresponsive. Pt treated IAW ACLS protocol, and transported to [facility] for evaluation. Pt found to be in PEA. Pt seen and evaluated in ED and found to be in extremis. Pt intubated and placed on vent support. Pt found to have RUL pneumonia consistent with Aspiration pneumonia. Pt admitted to ICU. CT head consistent with AUSTEN. Pulmonary consulted in ED. Past History Past Medical History: COPD, hypertension Past Surgical History: No surgical history, Other (reviewed) Social history: single. denies: smoking, alcohol abuse, prescription drug abuse Family history: hypertension Medications and Allergies Allergies Allergy/AdvReac Type Severity Reaction Status Date / Time No Known Allergies Allergy Unverified 08/18/17 17:14 Home Medications Medication Instructions Recorded Confirmed Last Taken Type predniSONE [Deltasone] 50 mg PO QDAY #5 tab 09/26/16 04/04/17 Unknown Rx ALBUTEROL Inhaler 2 puff INHALATION BID 04/03/17 04/04/17 04/03/17 History Advair 100-50 Diskus 2 puff INHALATION BID 04/03/17 04/04/17 04/04/17 History Lisinopril 20 mg PO DAILY 04/03/17 04/04/17 04/03/17 History Montelukast 10 mg PO DAILY 04/03/17 04/04/17 04/03/17 History amLODIPine 5 mg PO DAILY 04/03/17 04/04/17 04/03/17 History ALBUTEROL Inhaler [ProAir HFA 2 puff IH QID PRN #1 inhalation 06/24/17 Unknown Rx Inhaler] ALBUTEROL NEB's [Proventil 0.083% 2.5 mg IH TID PRN #90 neb 06/24/17 Unknown Rx NEBS] Mometasone Furoate [Asmanex] 1 inhalation IH QPM #1 inhalation 06/24/17 Unknown Rx predniSONE [Deltasone] 60 mg PO QDAY #20 tab 06/24/17 Unknown Rx Active Meds: Active Medications Albuterol (Proventil) 2.5 mg IH Q3HRT PRN PRN Reason: Shortness Of Breath Hydrophilic Ointment (Vaseline Lip Therapy) 1 applic TP Q2HR PRN PRN Reason: Dry Lips Norepinephrine (Levophed Drip 4 Mg/Ns 250 Ml) 4 mg in 250 mls @ 7.5 mls/hr IV TITR MARK; Protocol Last Titration: 08/18/17 17:37 Dose: 2.5 mcg/min, 9.375 mls/hr Multi-Ingred Cream/Lotion/Oil/Oint (Artificial Tears Ophth Oint) 1 applic OU Q4HR PRN PRN Reason: Dry Eye(s) Sodium Chloride (Nacl 0.9% 500 Ml) 1 ml IV DIRECT MARK Sodium Chloride (Sodium Chloride Flush Syringe 10 Ml) 10 ml IV BID MARK Sodium Chloride (Sodium Chloride Flush Syringe 10 Ml) 10 ml IV PRN PRN PRN Reason: LINE FLUSH Review of Systems ROS unobtainable: due to mental status Exam - Constitutional Vitals: Temp Pulse Resp BP Pulse Ox 95.2 F L 122 H 24 136/84 100 08/18/17 16:44 08/18/17 17:30 08/18/17 17:30 08/18/17 17:30 08/18/17 17:30 General appearance: Present: severe distress - EENT Eyes: Present: mydriasis - Neck Neck: Present: supple, normal ROM - Respiratory Respiratory effort: labored Respiratory: bilateral: diminished, rhonchi - Cardiovascular Heart Sounds: Present: S1 & S2. Absent: rub, click - Extremities Extremities: pulses symmetrical, No edema Peripheral Pulses: within normal limits - Abdominal General gastrointestinal: Present: soft, non-tender, non-distended, normal bowel sounds Female genitourinary: Present: normal - Integumentary Integumentary: Present: clear, warm, dry - Musculoskeletal Musculoskeletal: generalized weakness - Psychiatric Psychiatric: no intact judgment & insight, no memory intact - Neurologic Neurologic: no CNII-XII intact, no moves all extremities, no gait normal Results - Labs CBC & Chem 7: 08/18/17 15:15 08/18/17 15:15 Labs: Abnormal lab results 08/18/17 08/18/17 08/18/17 Range/Units 15:15 15:15 15:15 MCV 100 H (79-97) fl Seg Neuts % (Manual) 34.0 L (40.0-70.0) % Lymphocytes % (Manual) 59.0 H (13.4-35.0) % Lymphocytes # (Manual) 6.0 H (1.2-5.4) K/mm3 PT 18.2 H (12.2-14.9) Sec. INR 1.42 H (0.87-1.13) D-Dimer > 10356 H (0-234) ng/mlDDU POC ABG pH (7.35-7.45) POC ABG pCO2 (35-45) POC ABG pO2 (80-105) VBG pH (7.320-7.420) Chloride 95.7 L (98-107) mmol/L Carbon Dioxide 15 L (22-30) mmol/L Glucose 480 H (65-100) mg/dL Lactic Acid (0.7-2.0) mmol/L Calcium 7.9 L (8.4-10.2) mg/dL AST 55 H (5-40) units/L ALT 72 H (7-56) units/L Total Creatine Kinase (30-135) units/L Total Protein 5.6 L (6.3-8.2) g/dL Albumin 3.3 L (3.9-5) g/dL 08/18/17 08/18/17 08/18/17 Range/Units 15:15 15:15 15:15 MCV (79-97) fl Seg Neuts % (Manual) (40.0-70.0) % Lymphocytes % (Manual) (13.4-35.0) % Lymphocytes # (Manual) (1.2-5.4) K/mm3 PT (12.2-14.9) Sec. INR (0.87-1.13) D-Dimer (0-234) ng/mlDDU POC ABG pH (7.35-7.45) POC ABG pCO2 (35-45) POC ABG pO2 (80-105) VBG pH 6.787 L* (7.320-7.420) Chloride (98-107) mmol/L Carbon Dioxide (22-30) mmol/L Glucose (65-100) mg/dL Lactic Acid 13.90 H* (0.7-2.0) mmol/L Calcium (8.4-10.2) mg/dL AST (5-40) units/L ALT (7-56) units/L Total Creatine Kinase 170 H (30-135) units/L Total Protein (6.3-8.2) g/dL Albumin (3.9-5) g/dL 08/18/17 08/18/17 Range/Units 16:21 16:22 MCV (79-97) fl Seg Neuts % (Manual) (40.0-70.0) % Lymphocytes % (Manual) (13.4-35.0) % Lymphocytes # (Manual) (1.2-5.4) K/mm3 PT (12.2-14.9) Sec. INR (0.87-1.13) D-Dimer (0-234) ng/mlDDU POC ABG pH 7.161 L (7.35-7.45) POC ABG pCO2 73.3 H (35-45) POC ABG pO2 243 H (80-105) VBG pH (7.320-7.420) Chloride (98-107) mmol/L Carbon Dioxide (22-30) mmol/L Glucose (65-100) mg/dL Lactic Acid 8.30 H* (0.7-2.0) mmol/L Calcium (8.4-10.2) mg/dL AST (5-40) units/L ALT (7-56) units/L Total Creatine Kinase (30-135) units/L Total Protein (6.3-8.2) g/dL Albumin (3.9-5) g/dL Assessment and Plan - Patient Problems (1) Aspiration pneumonia Current Visit: Yes Status: Acute Qualifiers: Laterality: right Lung location: upper lobe of lung Plan to address problem: IV antibiotics, supplemental oxygen, blood cultures, urinalysis, chest X ray, CT chest, (2) Respiratory failure with hypoxia Current Visit: Yes Status: Acute Qualifiers: Chronicity: acute Qualified Code(s): J96.01 - Acute respiratory failure with hypoxia Plan to address problem: Pt intubated, sedated on vent support, nebulizer therapy, supplemental oxygen, wean vent as tolerated, SBT daily, sedation holiday, daily ABG, Poor prognosis, Pulmonary consulted. The high probability of a clinically significant, sudden or life threatening deterioration of the [pulmonary, cardiac, renal] system(s) required my full and direct attention, intervention and personal management. The aggregate critical care time was [65] minutes. This time is in addition to time spent performing reported procedures but includes the following: [x] Data Review and interpretation [x] Patient assessment and monitoring of vital signs [x] Documentation [x] Medication orders and management (3) Metabolic acidosis Current Visit: Yes Status: Acute Plan to address problem: IVF resuscitation, serial bmp, monitor uop q shift, (4) Anoxic brain damage Current Visit: Yes Status: Acute Plan to address problem: CT Head, neuro checks, (5) Cardiac arrest Current Visit: Yes Status: Acute Plan to address problem: Pt treated IAW ACLS protocol with return of perfusing rhythm, IV pressor support. (6) Cardiogenic shock Current Visit: Yes Status: Acute Plan to address problem: IV pressor support, IVF resuscitation, supportive care. (7) DVT prophylaxis Current Visit: Yes Status: Acute
[2017-08-18 18:45] LABS: Chol/HDL Ratio 2.73 %
[2017-08-18] MEDS ORDERED: NORMOSOL-R PH 7.4 1,000 ML IV ONE (22:29)
[2017-08-18] MEDS ORDERED: NEO-SYNEPHRINE 100 MG in NACL 0.9% 90 ML IV SCH (22:30)
[2017-08-18] MEDS ORDERED: LACTATED RINGERS 1,000 ML ONE (22:39)
[2017-08-18] MEDS: Vasostrict 20 UNIT in NACL 0.9% 100 ML IV SCH (23:13)
[2017-08-18] MEDS: SODIUM CHLORIDE FLUSH SYRINGE 10 ML IV SCH (23:21)
--- NOTE | 2017-08-18 23:23 | XRay Report ---
FINAL REPORT PROCEDURE: Portable supine AP chest x-ray TECHNIQUE: Chest radiograph portable supine AP view. CPT 44159 HISTORY: possible pneumothorax COMPARISON: No prior studies are available for comparison. FINDINGS: Endotracheal tube in place lying 2.1 centimeter above the alf and in good position. Left jugular central venous line in place. Tip of the catheter projects near the junction of the innominate vein and superior vena cava. No pneumothorax visualized. Lungs are clear. No infiltrates masses or effusions are seen. Heart size and pulmonary vasculature appear normal. Rib fracture seen on the CT scan performed earlier are not visualized on these plain films. Dense consolidation seen on the CT scan in the right middle lobe and right upper lobe are not visualized and presumed re-aerated. IMPRESSION: Endotracheal tube and central venous line as described. No evidence of pneumothorax. Lungs appear clear without infiltrates masses effusions or pneumothorax. Rib fractures visualized on the CT scan of the chest earlier are not visualized on this plain film.
[2017-08-19] MEDS: LEVOPHED DRIP 4 MG/NS 250 ML 4 MG/250 ML BAG IV SCH ×2 (00:05→07:24)
[2017-08-19] MEDS: UNASYN/NS 3 GM/100 ML 3 GM/100 ML BAG IV SCH ×3 (00:32→11:52)
[2017-08-19] MEDS ORDERED: ATROVENT IH ONE ×2 (01:04→01:07)
[2017-08-19] MEDS ORDERED: PROVENTIL IH ONE (01:43)
[2017-08-19] MEDS: DUONEB *Not for PRN Use IH SCH ×5 (05:05→19:22)
[2017-08-19 06:59] LABS: Albumin 3.3 g/dL (3.9-5); Calcium 7.8 mg/dL (8.4-10.2)
[2017-08-19] MEDS: Vasostrict 20 UNIT in NACL 0.9% 100 ML IV SCH ×2 (07:52→17:10)
--- NOTE | 2017-08-19 11:35 | Progress Note ---
Assessment and Plan // Anoxic brain damage Evident on ct head likely from severe hypoxia from cardiac arrest consult neurology // Cardiac arrest Pt treated with ACLS protocol with return of perfusing rhythm, IV pressor support. cardiology consulted, preserved EF on 2d echo // Cardiogenic shock IV pressor support, IVF resuscitation, supportive care. // Aspiration pneumonia IV antibiotics, supplemental oxygen, CT chest showed right upper and middle love consolidation, likely from mucus plug vs underlying mass will defer to pulmonary for further recommendation //Acute Respiratory failure with hypoxia: Pt intubated, sedated on vent support, nebulizer therapy, supplemental oxygen, wean vent as tolerated, SBT daily, sedation holiday, daily ABG, Poor prognosis, Pulmonary consulted. // Metabolic acidosis IVF resuscitation, serial bmp, monitor uop q shift, //elevated troponine - likely due to cardiac arrest, cardiology consulted, started on heparin drip // hypernatremia, start on hypotonic fluid //NIRANJAN, likely tubular necrosis from hypotension - monitor renal function, start on iv fluid // DVT prophylaxis heparin The high probability of a clinically significant, sudden or life threatening deterioration of the [pulmonary, cardiac, renal] system(s) required my full and direct attention, intervention and personal management. The aggregate critical care time was [65] minutes. This time is in addition to time spent performing reported procedures but includes the following: [x] Data Review and interpretation [x] Patient assessment and monitoring of vital signs [x] Documentation [x] Medication orders and management Brief History: Patient is a 61-year-old female past medical history of asthma COPD and hypertension who is presenting cardiac arrest. Patient's family called 911 because of diaphoresis and shortness of breath. When EMS arrived they initiated ACLS protocol. The patient was in PEA most of the ride to the emergency department. Physical exam: General appearance: other (intubated) HEENT: atraumatic, constricted pupil Neck: Positive: neck supple, trachea midline Cardiac: Positive: Reg Rate and Rhythm, S1/S2 Lungs: Positive: Rhonchi (expiratory), Oxygen, Ventilated Respirations Neuro: Positive: Other (unresponsive) Skin: Positive: Clear. Negative: Rash, Wound Musculoskeletal: No Fluid Collection, No Pain, Normal Range of Motion Extremities: Absent: edema Psych: unable to assess Subjective Date of service: 08/19/17 Interval history: Pt seen and examined Intubated without sedation updated family at bedside Objective - Constitutional Vitals: Vital Signs - 12hr 08/18/17 08/18/17 08/18/17 23:45 23:46 23:59 Temperature 93.7 F L Pulse Rate 87 86 Pulse Rate [ Anterior Bilateral Throughout] Respiratory 24 24 Rate Respiratory Rate [Anterior Bilateral Throughout] Blood Pressure 146/111 130/102 O2 Sat by Pulse 100 100 Oximetry 08/19/17 08/19/17 08/19/17 00:00 00:11 00:15 Temperature 93.0 F L Pulse Rate 87 87 93 H Pulse Rate [ Anterior Bilateral Throughout] Respiratory 20 23 Rate Respiratory Rate [Anterior Bilateral Throughout] Blood Pressure 165/116 165/116 165/116 O2 Sat by Pulse 100 100 100 Oximetry 08/19/17 08/19/17 08/19/17 00:30 00:45 01:00 Temperature 93.1 F L Pulse Rate 90 90 85 Pulse Rate [ 87 Anterior Bilateral Throughout] Respiratory 24 24 12 Rate Respiratory 26 H Rate [Anterior Bilateral Throughout] Blood Pressure 98/71 87/65 96/74 O2 Sat by Pulse 100 100 100 Oximetry 08/19/17 08/19/17 08/19/17 01:15 01:25 01:30 Temperature Pulse Rate 87 87 90 Pulse Rate [ Anterior Bilateral Throughout] Respiratory 25 H 26 H Rate Respiratory Rate [Anterior Bilateral Throughout] Blood Pressure 86/62 86/62 81/53 O2 Sat by Pulse 97 96 96 Oximetry 08/19/17 08/19/17 08/19/17 01:40 01:45 02:00 Temperature Pulse Rate 90 91 H Pulse Rate [ 90 Anterior Bilateral Throughout] Respiratory 26 H 26 H Rate Respiratory 26 H Rate [Anterior Bilateral Throughout] Blood Pressure 87/62 100/74 O2 Sat by Pulse 98 98 Oximetry 08/19/17 08/19/17 08/19/17 02:15 02:30 02:34 Temperature 95.5 F L Pulse Rate 91 H 92 H Pulse Rate [ Anterior Bilateral Throughout] Respiratory 26 H 26 H Rate Respiratory Rate [Anterior Bilateral Throughout] Blood Pressure 105/78 111/83 O2 Sat by Pulse 100 98 Oximetry 08/19/17 08/19/17 08/19/17 02:45 03:00 03:03 Temperature 96.1 F L Pulse Rate 92 H 92 H Pulse Rate [ Anterior Bilateral Throughout] Respiratory 26 H 26 H Rate Respiratory Rate [Anterior Bilateral Throughout] Blood Pressure 115/84 125/82 O2 Sat by Pulse 99 100 Oximetry 08/19/17 08/19/17 08/19/17 03:15 03:30 03:45 Temperature Pulse Rate 97 H 93 H 92 H Pulse Rate [ Anterior Bilateral Throughout] Respiratory 26 H 26 H 26 H Rate Respiratory Rate [Anterior Bilateral Throughout] Blood Pressure 129/90 125/86 122/86 O2 Sat by Pulse 100 98 99 Oximetry 08/19/17 08/19/17 08/19/17 04:00 04:15 04:25 Temperature 97.7 F Pulse Rate 92 H 91 H Pulse Rate [ Anterior Bilateral Throughout] Respiratory 26 H 26 H 24 Rate Respiratory Rate [Anterior Bilateral Throughout] Blood Pressure 120/85 119/82 O2 Sat by Pulse 97 99 100 Oximetry 08/19/17 08/19/17 08/19/17 04:30 04:45 04:50 Temperature Pulse Rate 91 H 91 H Pulse Rate [ 92 H Anterior Bilateral Throughout] Respiratory 26 H 26 H Rate Respiratory 26 H Rate [Anterior Bilateral Throughout] Blood Pressure 127/89 129/86 O2 Sat by Pulse 99 100 Oximetry 08/19/17 08/19/17 08/19/17 05:00 05:12 05:15 Temperature Pulse Rate 91 H 91 H Pulse Rate [ 91 H Anterior Bilateral Throughout] Respiratory 26 H 26 H Rate Respiratory 26 H Rate [Anterior Bilateral Throughout] Blood Pressure 131/90 131/94 O2 Sat by Pulse 99 100 Oximetry 08/19/17 08/19/17 08/19/17 05:30 05:45 06:00 Temperature Pulse Rate 93 H 91 H 91 H Pulse Rate [ Anterior Bilateral Throughout] Respiratory 24 24 24 Rate Respiratory Rate [Anterior Bilateral Throughout] Blood Pressure 130/94 139/94 130/86 O2 Sat by Pulse 99 99 Oximetry 08/19/17 08/19/17 08/19/17 06:15 06:30 06:45 Temperature Pulse Rate 91 H 94 H 94 H Pulse Rate [ Anterior Bilateral Throughout] Respiratory 24 24 24 Rate Respiratory Rate [Anterior Bilateral Throughout] Blood Pressure 126/84 134/91 144/99 O2 Sat by Pulse 98 98 99 Oximetry 08/19/17 08/19/17 08/19/17 07:00 07:15 07:30 Temperature Pulse Rate 95 H 97 H 97 H Pulse Rate [ Anterior Bilateral Throughout] Respiratory 24 24 24 Rate Respiratory Rate [Anterior Bilateral Throughout] Blood Pressure 141/93 155/101 154/91 O2 Sat by Pulse 98 100 98 Oximetry 08/19/17 08/19/17 08/19/17 07:45 08:00 08:15 Temperature 97.4 F L Pulse Rate 100 H 101 H 101 H Pulse Rate [ Anterior Bilateral Throughout] Respiratory 23 24 24 Rate Respiratory Rate [Anterior Bilateral Throughout] Blood Pressure 157/97 152/99 149/94 O2 Sat by Pulse 97 98 98 Oximetry 08/19/17 08/19/17 08/19/17 08:30 08:33 08:40 Temperature Pulse Rate 101 H 101 H Pulse Rate [ 101 H Anterior Bilateral Throughout] Respiratory 24 Rate Respiratory 24 Rate [Anterior Bilateral Throughout] Blood Pressure 156/101 150/93 O2 Sat by Pulse 98 99 Oximetry 08/19/17 08/19/17 08/19/17 08:45 08:48 09:00 Temperature Pulse Rate 102 H 105 H Pulse Rate [ 102 H Anterior Bilateral Throughout] Respiratory 22 24 Rate Respiratory 24 Rate [Anterior Bilateral Throughout] Blood Pressure 139/97 159/99 O2 Sat by Pulse 98 98 Oximetry 08/19/17 08/19/17 08/19/17 09:15 09:30 09:45 Temperature Pulse Rate 107 H 108 H 109 H Pulse Rate [ Anterior Bilateral Throughout] Respiratory 24 24 24 Rate Respiratory Rate [Anterior Bilateral Throughout] Blood Pressure 158/100 169/106 147/100 O2 Sat by Pulse 98 98 99 Oximetry 08/19/17 10:00 Temperature Pulse Rate 108 H Pulse Rate [ Anterior Bilateral Throughout] Respiratory 24 Rate Respiratory Rate [Anterior Bilateral Throughout] Blood Pressure 142/97 O2 Sat by Pulse 98 Oximetry - Labs CBC & Chem 7: 08/19/17 17:49 08/19/17 06:15 Labs: Abnormal lab results 08/18/17 08/18/17 08/18/17 Range/Units 15:15 15:15 15:15 MCV 100 H (79-97) fl Seg Neuts % (Manual) 34.0 L (40.0-70.0) % Lymphocytes % (Manual) 59.0 H (13.4-35.0) % Lymphocytes # (Manual) 6.0 H (1.2-5.4) K/mm3 PT 18.2 H (12.2-14.9) Sec. INR 1.42 H (0.87-1.13) D-Dimer > 51398 H (0-234) ng/mlDDU POC ABG pH (7.35-7.45) POC ABG pCO2 (35-45) POC ABG pO2 (80-105) VBG pH (7.320-7.420) Sodium (137-145) mmol/L Potassium (3.6-5.0) mmol/L Chloride 95.7 L (98-107) mmol/L Carbon Dioxide 15 L (22-30) mmol/L BUN (7-17) mg/dL Creatinine (0.7-1.2) mg/dL Glucose 480 H (65-100) mg/dL POC Glucose (70-105) Lactic Acid (0.7-2.0) mmol/L Calcium 7.9 L (8.4-10.2) mg/dL AST 55 H (5-40) units/L ALT 72 H (7-56) units/L Total Creatine Kinase (30-135) units/L Troponin T (0.00-0.029) ng/mL Total Protein 5.6 L (6.3-8.2) g/dL Albumin 3.3 L (3.9-5) g/dL 08/18/17 08/18/17 08/18/17 Range/Units 15:15 15:15 15:15 MCV (79-97) fl Seg Neuts % (Manual) (40.0-70.0) % Lymphocytes % (Manual) (13.4-35.0) % Lymphocytes # (Manual) (1.2-5.4) K/mm3 PT (12.2-14.9) Sec. INR (0.87-1.13) D-Dimer (0-234) ng/mlDDU POC ABG pH (7.35-7.45) POC ABG pCO2 (35-45) POC ABG pO2 (80-105) VBG pH 6.787 L* (7.320-7.420) Sodium (137-145) mmol/L Potassium (3.6-5.0) mmol/L Chloride (98-107) mmol/L Carbon Dioxide (22-30) mmol/L BUN (7-17) mg/dL Creatinine (0.7-1.2) mg/dL Glucose (65-100) mg/dL POC Glucose (70-105) Lactic Acid 13.90 H* (0.7-2.0) mmol/L Calcium (8.4-10.2) mg/dL AST (5-40) units/L ALT (7-56) units/L Total Creatine Kinase 170 H (30-135) units/L Troponin T (0.00-0.029) ng/mL Total Protein (6.3-8.2) g/dL Albumin (3.9-5) g/dL 08/18/17 08/18/17 08/18/17 Range/Units 16:21 16:22 17:54 MCV (79-97) fl Seg Neuts % (Manual) (40.0-70.0) % Lymphocytes % (Manual) (13.4-35.0) % Lymphocytes # (Manual) (1.2-5.4) K/mm3 PT (12.2-14.9) Sec. INR (0.87-1.13) D-Dimer (0-234) ng/mlDDU POC ABG pH 7.161 L (7.35-7.45) POC ABG pCO2 73.3 H (35-45) POC ABG pO2 243 H (80-105) VBG pH (7.320-7.420) Sodium (137-145) mmol/L Potassium (3.6-5.0) mmol/L Chloride (98-107) mmol/L Carbon Dioxide (22-30) mmol/L BUN (7-17) mg/dL Creatinine (0.7-1.2) mg/dL Glucose (65-100) mg/dL POC Glucose (70-105) Lactic Acid 8.30 H* 6.00 H* (0.7-2.0) mmol/L Calcium (8.4-10.2) mg/dL AST (5-40) units/L ALT (7-56) units/L Total Creatine Kinase (30-135) units/L Troponin T (0.00-0.029) ng/mL Total Protein (6.3-8.2) g/dL Albumin (3.9-5) g/dL 08/18/17 08/18/17 08/18/17 Range/Units 17:54 18:50 21:55 MCV (79-97) fl Seg Neuts % (Manual) (40.0-70.0) % Lymphocytes % (Manual) (13.4-35.0) % Lymphocytes # (Manual) (1.2-5.4) K/mm3 PT (12.2-14.9) Sec. INR (0.87-1.13) D-Dimer (0-234) ng/mlDDU POC ABG pH (7.35-7.45) POC ABG pCO2 (35-45) POC ABG pO2 (80-105) VBG pH (7.320-7.420) Sodium (137-145) mmol/L Potassium (3.6-5.0) mmol/L Chloride (98-107) mmol/L Carbon Dioxide (22-30) mmol/L BUN (7-17) mg/dL Creatinine (0.7-1.2) mg/dL Glucose (65-100) mg/dL POC Glucose (70-105) Lactic Acid 4.70 H* (0.7-2.0) mmol/L Calcium (8.4-10.2) mg/dL AST (5-40) units/L ALT (7-56) units/L Total Creatine Kinase (30-135) units/L Troponin T 0.275 H* D 0.858 H* D (0.00-0.029) ng/mL Total Protein (6.3-8.2) g/dL Albumin (3.9-5) g/dL 08/18/17 08/18/17 08/19/17 Range/Units 21:55 22:20 01:25 MCV (79-97) fl Seg Neuts % (Manual) (40.0-70.0) % Lymphocytes % (Manual) (13.4-35.0) % Lymphocytes # (Manual) (1.2-5.4) K/mm3 PT (12.2-14.9) Sec. INR (0.87-1.13) D-Dimer (0-234) ng/mlDDU POC ABG pH (7.35-7.45) POC ABG pCO2 50.0 H (35-45) POC ABG pO2 (80-105) VBG pH (7.320-7.420) Sodium (137-145) mmol/L Potassium (3.6-5.0) mmol/L Chloride (98-107) mmol/L Carbon Dioxide (22-30) mmol/L BUN (7-17) mg/dL Creatinine (0.7-1.2) mg/dL Glucose (65-100) mg/dL POC Glucose 166 H (70-105) Lactic Acid 4.40 H* (0.7-2.0) mmol/L Calcium (8.4-10.2) mg/dL AST (5-40) units/L ALT (7-56) units/L Total Creatine Kinase (30-135) units/L Troponin T (0.00-0.029) ng/mL Total Protein (6.3-8.2) g/dL Albumin (3.9-5) g/dL 08/19/17 08/19/17 08/19/17 Range/Units 05:33 06:15 06:15 MCV (79-97) fl Seg Neuts % (Manual) (40.0-70.0) % Lymphocytes % (Manual) (13.4-35.0) % Lymphocytes # (Manual) (1.2-5.4) K/mm3 PT (12.2-14.9) Sec. INR (0.87-1.13) D-Dimer (0-234) ng/mlDDU POC ABG pH 7.488 H (7.35-7.45) POC ABG pCO2 33.1 L (35-45) POC ABG pO2 173 H (80-105) VBG pH (7.320-7.420) Sodium 154 H D (137-145) mmol/L Potassium 3.5 L (3.6-5.0) mmol/L Chloride 113.7 H (98-107) mmol/L Carbon Dioxide (22-30) mmol/L BUN 26 H (7-17) mg/dL Creatinine 1.6 H (0.7-1.2) mg/dL Glucose 204 H (65-100) mg/dL POC Glucose (70-105) Lactic Acid 2.70 H* (0.7-2.0) mmol/L Calcium 7.8 L (8.4-10.2) mg/dL AST 206 H (5-40) units/L ALT 217 H (7-56) units/L Total Creatine Kinase (30-135) units/L Troponin T (0.00-0.029) ng/mL Total Protein 5.9 L (6.3-8.2) g/dL Albumin 3.3 L (3.9-5) g/dL
[2017-08-19] MEDS ORDERED: SIMPLE SYRUP FEEDTUBE PRN ×2 (11:40)
[2017-08-19] MEDS ORDERED: PANCREAZE DR 10,500 UNIT FEEDTUBE PRN (11:40)
[2017-08-19] MEDS ORDERED: SODIUM BICARBONATE FEEDTUBE PRN (11:40)
[2017-08-19] MEDS: PEPCID IV SCH ×2 (11:52→23:11)
[2017-08-19] MEDS: SODIUM CHLORIDE FLUSH SYRINGE 10 ML IV SCH ×2 (11:53→23:11)
--- NOTE | 2017-08-19 12:37 | Consultation ---
History of Present Illness Consult date: 08/19/17 Requesting physician: ARUN CELESTE Reason for consult: other (Acute Hyp[oxemic Respiratory Failure; S/P OOH Cardiac Arrest) History of present illness: PULMONARY/CCM CONSULT NOTE (Full dictation # [id number]) Please see dictated notes for full details Past History Past Medical History: COPD, hypertension Past Surgical History: No surgical history, Other (reviewed) Social history: single. denies: smoking, alcohol abuse, prescription drug abuse Family history: hypertension Medications and Allergies Allergies Allergy/AdvReac Type Severity Reaction Status Date / Time No Known Allergies Allergy Unverified 08/18/17 17:14 Home Medications Medication Instructions Recorded Confirmed Last Taken Type predniSONE [Deltasone] 50 mg PO QDAY #5 tab 09/26/16 04/04/17 Unknown Rx ALBUTEROL Inhaler 2 puff INHALATION BID 04/03/17 04/04/17 04/03/17 History Advair 100-50 Diskus 2 puff INHALATION BID 04/03/17 04/04/17 04/04/17 History Lisinopril 20 mg PO DAILY 04/03/17 04/04/17 04/03/17 History Montelukast 10 mg PO DAILY 04/03/17 04/04/17 04/03/17 History amLODIPine 5 mg PO DAILY 04/03/17 04/04/17 04/03/17 History ALBUTEROL Inhaler [ProAir HFA 2 puff IH QID PRN #1 inhalation 06/24/17 Unknown Rx Inhaler] ALBUTEROL NEB's [Proventil 0.083% 2.5 mg IH TID PRN #90 neb 06/24/17 Unknown Rx NEBS] Mometasone Furoate [Asmanex] 1 inhalation IH QPM #1 inhalation 06/24/17 Unknown Rx predniSONE [Deltasone] 60 mg PO QDAY #20 tab 06/24/17 Unknown Rx Active Meds: Active Medications Albuterol (Proventil) 2.5 mg IH Q3HRT PRN PRN Reason: Shortness Of Breath Albuterol/Ipratropium (Duoneb *Not For Prn Use*) 1 ampul IH Q4HRT MARK Last Admin: 08/19/17 12:34 Dose: 1 ampul Lipase/Protease/Amylase (Antionette Dumont 10,500 Unit) 1 each FEEDTUBE PRN PRN PRN Reason: For Clogged Feeding Tube Famotidine (Pepcid) 20 mg IV BID MARK Last Admin: 08/19/17 11:52 Dose: Not Given Hydrophilic Ointment (Vaseline Lip Therapy) 1 applic TP Q2HR PRN PRN Reason: Dry Lips Ampicillin Sodium/Sulbactam Sodium (Unasyn/Ns 3 Gm/100 Ml) 3 gm in 100 mls @ 100 mls/hr IV Q6HR MARK; Protocol Last Admin: 08/19/17 11:52 Dose: 100 mls/hr Vasopressin 20 unit/ Sodium (Chloride) 101 mls @ 9.09 mls/hr IV TITR MARK; Protocol Last Admin: 08/19/17 07:52 Dose: 0.03 units/min, 9.09 mls/hr Norepinephrine (Levophed Drip 4 Mg/Ns 250 Ml) 4 mg in 250 mls @ 7.5 mls/hr IV TITR MARK; Protocol Last Titration: 08/19/17 09:48 Dose: 0 mcg/min, 0 mls/hr Dextrose/Sodium Chloride (D5/0.45ns) 1,000 mls @ 100 mls/hr IV DIRECT MARK Multi-Ingred Cream/Lotion/Oil/Oint (Artificial Tears Ophth Oint) 1 applic OU Q4HR PRN PRN Reason: Dry Eye(s) Simple Syrup (Simple Syrup) 15 ml FEEDTUBE PRN PRN PRN Reason: Hypoglycemia Simple Syrup (Simple Syrup) 30 ml FEEDTUBE PRN PRN PRN Reason: Hypoglycemia Sodium Bicarbonate (Sodium Bicarbonate) 325 mg FEEDTUBE PRN PRN PRN Reason: For Clogged Feeding Tube Sodium Chloride (Nacl 0.9% 500 Ml) 1 ml IV DIRECT MARK Sodium Chloride (Sodium Chloride Flush Syringe 10 Ml) 10 ml IV BID MARK Last Admin: 08/19/17 11:53 Dose: 10 ml Sodium Chloride (Sodium Chloride Flush Syringe 10 Ml) 10 ml IV PRN PRN PRN Reason: LINE FLUSH Physical Examination Vital signs: Vital Signs Pulse Ox 100 08/18/17 14:50 Results - Laboratory Findings CBC and BMP: 08/18/17 15:15 08/19/17 06:15 ABG POC ABG pH 7.488 (7.35-7.45) H 08/19/17 05:33 POC ABG pCO2 33.1 (35-45) L 08/19/17 05:33 POC ABG pO2 173 (80-105) H 08/19/17 05:33 POC ABG HCO3 25.1 08/19/17 05:33 POC ABG Total CO2 26 08/19/17 05:33 POC ABG O2 Sat 100 08/19/17 05:33 PT/INR, D-dimer PT 18.2 Sec. (12.2-14.9) H 08/18/17 15:15 INR 1.42 (0.87-1.13) H 08/18/17 15:15 D-Dimer > 36596 ng/mlDDU (0-234) H 08/18/17 15:15 Abnormal lab findings: Abnormal Labs 08/18/17 08/18/17 08/18/17 15:15 15:15 15:15 MCV 100 H Seg Neuts % (Manual) 34.0 L Lymphocytes % (Manual) 59.0 H Lymphocytes # (Manual) 6.0 H PT 18.2 H INR 1.42 H D-Dimer > 66239 H POC ABG pH POC ABG pCO2 POC ABG pO2 VBG pH Sodium Potassium Chloride 95.7 L Carbon Dioxide 15 L BUN Creatinine Glucose 480 H POC Glucose Lactic Acid Calcium 7.9 L AST 55 H ALT 72 H Total Creatine Kinase Troponin T Total Protein 5.6 L Albumin 3.3 L 08/18/17 08/18/17 08/18/17 15:15 15:15 15:15 MCV Seg Neuts % (Manual) Lymphocytes % (Manual) Lymphocytes # (Manual) PT INR D-Dimer POC ABG pH POC ABG pCO2 POC ABG pO2 VBG pH 6.787 L* Sodium Potassium Chloride Carbon Dioxide BUN Creatinine Glucose POC Glucose Lactic Acid 13.90 H* Calcium AST ALT Total Creatine Kinase 170 H Troponin T Total Protein Albumin 08/18/17 08/18/17 08/18/17 16:21 16:22 17:54 MCV Seg Neuts % (Manual) Lymphocytes % (Manual) Lymphocytes # (Manual) PT INR D-Dimer POC ABG pH 7.161 L POC ABG pCO2 73.3 H POC ABG pO2 243 H VBG pH Sodium Potassium Chloride Carbon Dioxide BUN Creatinine Glucose POC Glucose Lactic Acid 8.30 H* 6.00 H* Calcium AST ALT Total Creatine Kinase Troponin T Total Protein Albumin 08/18/17 08/18/17 08/18/17 17:54 18:50 21:55 MCV Seg Neuts % (Manual) Lymphocytes % (Manual) Lymphocytes # (Manual) PT INR D-Dimer POC ABG pH POC ABG pCO2 POC ABG pO2 VBG pH Sodium Potassium Chloride Carbon Dioxide BUN Creatinine Glucose POC Glucose Lactic Acid 4.70 H* Calcium AST ALT Total Creatine Kinase Troponin T 0.275 H* D 0.858 H* D Total Protein Albumin 08/18/17 08/18/17 08/19/17 21:55 22:20 01:25 MCV Seg Neuts % (Manual) Lymphocytes % (Manual) Lymphocytes # (Manual) PT INR D-Dimer POC ABG pH POC ABG pCO2 50.0 H POC ABG pO2 VBG pH Sodium Potassium Chloride Carbon Dioxide BUN Creatinine Glucose POC Glucose 166 H Lactic Acid 4.40 H* Calcium AST ALT Total Creatine Kinase Troponin T Total Protein Albumin 08/19/17 08/19/17 08/19/17 05:33 06:15 06:15 MCV Seg Neuts % (Manual) Lymphocytes % (Manual) Lymphocytes # (Manual) PT INR D-Dimer POC ABG pH 7.488 H POC ABG pCO2 33.1 L POC ABG pO2 173 H VBG pH Sodium 154 H D Potassium 3.5 L Chloride 113.7 H Carbon Dioxide BUN 26 H Creatinine 1.6 H Glucose 204 H POC Glucose Lactic Acid 2.70 H* Calcium 7.8 L AST 206 H ALT 217 H Total Creatine Kinase Troponin T Total Protein 5.9 L Albumin 3.3 L
--- NOTE | 2017-08-19 13:35 | History and Physical Report ---
History of Present Illness Date of examination: 08/19/17 Date of admission: 08/18/17 16:47 Chief complaint: Anoxic brain injury History of present illness: 61 left handed female with a past medical history of HTN, COPD , Asthma presents to ED for evaluation. As per family, the patient experienced shortness of breath and diaphoresis yesterday morning. EMS was notified, and upon arrival the patient was found to be in respiratory distress, and subsequently became unresponsive. She was treated [facility] ACLS protocol, and transported to [facility] for evaluation. She apparently suffered from cardiac arrest. She was coded 3 times. She was intubated and placed on vent support. Pt found to have RUL pneumonia consistent with Aspiration pneumonia. There was no clinical seizure like activities noted. She can't give details. The HPI was obtained per medical staff, medical recording, her son, daughter in law and cousin at bed side. Past History Past Medical History: COPD, hypertension Past Surgical History: No surgical history, Other (reviewed) Social history: single. denies: smoking, alcohol abuse, prescription drug abuse Family history: hypertension Medications and Allergies Allergies Allergy/AdvReac Type Severity Reaction Status Date / Time No Known Allergies Allergy Unverified 08/18/17 17:14 Home Medications Medication Instructions Recorded Confirmed Last Taken Type predniSONE [Deltasone] 50 mg PO QDAY #5 tab 09/26/16 04/04/17 Unknown Rx ALBUTEROL Inhaler 2 puff INHALATION BID 04/03/17 04/04/17 04/03/17 History Advair 100-50 Diskus 2 puff INHALATION BID 04/03/17 04/04/17 04/04/17 History Lisinopril 20 mg PO DAILY 04/03/17 04/04/17 04/03/17 History Montelukast 10 mg PO DAILY 04/03/17 04/04/17 04/03/17 History amLODIPine 5 mg PO DAILY 04/03/17 04/04/17 04/03/17 History ALBUTEROL Inhaler [ProAir HFA 2 puff IH QID PRN #1 inhalation 06/24/17 Unknown Rx Inhaler] ALBUTEROL NEB's [Proventil 0.083% 2.5 mg IH TID PRN #90 neb 06/24/17 Unknown Rx NEBS] Mometasone Furoate [Asmanex] 1 inhalation IH QPM #1 inhalation 06/24/17 Unknown Rx predniSONE [Deltasone] 60 mg PO QDAY #20 tab 06/24/17 Unknown Rx Active Meds: Active Medications Albuterol (Proventil) 2.5 mg IH Q3HRT PRN PRN Reason: Shortness Of Breath Albuterol/Ipratropium (Duoneb *Not For Prn Use*) 1 ampul IH Q4HRT MARK Last Admin: 08/19/17 12:34 Dose: 1 ampul Lipase/Protease/Amylase (Pancreaze Dr 10,500 Unit) 1 each FEEDTUBE PRN PRN PRN Reason: For Clogged Feeding Tube Famotidine (Pepcid) 20 mg IV BID MARK Last Admin: 08/19/17 11:52 Dose: Not Given Hydrophilic Ointment (Vaseline Lip Therapy) 1 applic TP Q2HR PRN PRN Reason: Dry Lips Ampicillin Sodium/Sulbactam Sodium (Unasyn/Ns 3 Gm/100 Ml) 3 gm in 100 mls @ 100 mls/hr IV Q6HR MARK; Protocol Last Admin: 08/19/17 11:52 Dose: 100 mls/hr Vasopressin 20 unit/ Sodium (Chloride) 101 mls @ 9.09 mls/hr IV TITR MARK; Protocol Last Admin: 08/19/17 07:52 Dose: 0.03 units/min, 9.09 mls/hr Norepinephrine (Levophed Drip 4 Mg/Ns 250 Ml) 4 mg in 250 mls @ 7.5 mls/hr IV TITR MARK; Protocol Last Titration: 08/19/17 09:48 Dose: 0 mcg/min, 0 mls/hr Dextrose/Sodium Chloride (D5/0.45ns) 1,000 mls @ 100 mls/hr IV DIRECT MARK Multi-Ingred Cream/Lotion/Oil/Oint (Artificial Tears Ophth Oint) 1 applic OU Q4HR PRN PRN Reason: Dry Eye(s) Simple Syrup (Simple Syrup) 15 ml FEEDTUBE PRN PRN PRN Reason: Hypoglycemia Simple Syrup (Simple Syrup) 30 ml FEEDTUBE PRN PRN PRN Reason: Hypoglycemia Sodium Bicarbonate (Sodium Bicarbonate) 325 mg FEEDTUBE PRN PRN PRN Reason: For Clogged Feeding Tube Sodium Chloride (Nacl 0.9% 500 Ml) 1 ml IV DIRECT MARK Sodium Chloride (Sodium Chloride Flush Syringe 10 Ml) 10 ml IV BID MARK Last Admin: 08/19/17 11:53 Dose: 10 ml Sodium Chloride (Sodium Chloride Flush Syringe 10 Ml) 10 ml IV PRN PRN PRN Reason: LINE FLUSH Review of Systems ROS unobtainable: due to endotracheal tube Physical Examination - Vital Signs Vital Signs: Vital Signs Pulse Ox 100 08/18/17 14:50 - Constitutional General appearance: acutely ill - EENT EENT: Present: mucous membranes moist - Respiratory Respiratory: Present: lungs clear - Cardiovascular Cardiovascular: Present: regular rate, no murmurs Extremities: Present: no peripheral edema bilatateraly - Gastrointestinal Gastrointestinal: Present: soft - Neurologic Quique Coma Scale (3-15): 3 (Pupils 6 mm, round, equal, not responsive. No corneal, no Doll's, no gag. Face symmetric, toes down going bilaterally.) Reflexes: 0: ankle, bicep, knee, tricep Results - Laboratory Findings CBC and BMP: 08/18/17 15:15 08/19/17 06:15 Abnormal Lab Findings: Abnormal Labs 08/18/17 08/18/17 08/18/17 15:15 15:15 15:15 MCV 100 H Seg Neuts % (Manual) 34.0 L Lymphocytes % (Manual) 59.0 H Lymphocytes # (Manual) 6.0 H PT 18.2 H INR 1.42 H D-Dimer > 83318 H POC ABG pH POC ABG pCO2 POC ABG pO2 VBG pH Sodium Potassium Chloride 95.7 L Carbon Dioxide 15 L BUN Creatinine Glucose 480 H POC Glucose Lactic Acid Calcium 7.9 L AST 55 H ALT 72 H Total Creatine Kinase Troponin T Total Protein 5.6 L Albumin 3.3 L 08/18/17 08/18/17 08/18/17 15:15 15:15 15:15 MCV Seg Neuts % (Manual) Lymphocytes % (Manual) Lymphocytes # (Manual) PT INR D-Dimer POC ABG pH POC ABG pCO2 POC ABG pO2 VBG pH 6.787 L* Sodium Potassium Chloride Carbon Dioxide BUN Creatinine Glucose POC Glucose Lactic Acid 13.90 H* Calcium AST ALT Total Creatine Kinase 170 H Troponin T Total Protein Albumin 08/18/17 08/18/17 08/18/17 16:21 16:22 17:54 MCV Seg Neuts % (Manual) Lymphocytes % (Manual) Lymphocytes # (Manual) PT INR D-Dimer POC ABG pH 7.161 L POC ABG pCO2 73.3 H POC ABG pO2 243 H VBG pH Sodium Potassium Chloride Carbon Dioxide BUN Creatinine Glucose POC Glucose Lactic Acid 8.30 H* 6.00 H* Calcium AST ALT Total Creatine Kinase Troponin T Total Protein Albumin 08/18/17 08/18/17 08/18/17 17:54 18:50 21:55 MCV Seg Neuts % (Manual) Lymphocytes % (Manual) Lymphocytes # (Manual) PT INR D-Dimer POC ABG pH POC ABG pCO2 POC ABG pO2 VBG pH Sodium Potassium Chloride Carbon Dioxide BUN Creatinine Glucose POC Glucose Lactic Acid 4.70 H* Calcium AST ALT Total Creatine Kinase Troponin T 0.275 H* D 0.858 H* D Total Protein Albumin 08/18/17 08/18/17 08/19/17 21:55 22:20 01:25 MCV Seg Neuts % (Manual) Lymphocytes % (Manual) Lymphocytes # (Manual) PT INR D-Dimer POC ABG pH POC ABG pCO2 50.0 H POC ABG pO2 VBG pH Sodium Potassium Chloride Carbon Dioxide BUN Creatinine Glucose POC Glucose 166 H Lactic Acid 4.40 H* Calcium AST ALT Total Creatine Kinase Troponin T Total Protein Albumin 08/19/17 08/19/17 08/19/17 05:33 06:15 06:15 MCV Seg Neuts % (Manual) Lymphocytes % (Manual) Lymphocytes # (Manual) PT INR D-Dimer POC ABG pH 7.488 H POC ABG pCO2 33.1 L POC ABG pO2 173 H VBG pH Sodium 154 H D Potassium 3.5 L Chloride 113.7 H Carbon Dioxide BUN 26 H Creatinine 1.6 H Glucose 204 H POC Glucose Lactic Acid 2.70 H* Calcium 7.8 L AST 206 H ALT 217 H Total Creatine Kinase Troponin T Total Protein 5.9 L Albumin 3.3 L Assessment and Plan 1. Cardiac respiratory arrest. ICU team. 2. Probably brain . If needed, can perform apnea test. 3. Spent > 45 minutes with the patient. 4. Plan discussed with his ICU physician, his nurse, his son, daughter in law and cousin. 5. Will follow up with you PRN.
[2017-08-19] MEDS: D5/0.45NS 1,000 ML IV SCH (14:07)
--- NOTE | 2017-08-19 14:29 | Consultation ---
History of Present Illness Consult date: 08/19/17 Requesting physician: POLLY LIM Consult reason: elevated troponin History of present illness: The pt is a 61 YO female with a past medical history significant for asthma. She is previously unknown to our practice. Pt is intubated on evaluation and thus HPI is obtained per the chart and per pt's daughter at bedside. Per pt's daughter, pt has been feeling well and in her normal state of health. This past weekend, the pt drove to [place], [place], and back. The pt returned from [place] yesterday and arrived home without incident. Around 1PM yesterday, the pt c/o increased SOB and diaphoresis. The pt took several of her breathing treatments without relief and then suddenly became unresponsive at home. This was witnessed by pt's son. Per the chart, pt was in cardiac arrest when EMS arrived and they initiated ACLS protocol. The patient was in [place] most of the ride to the ED. Following [facility] arrival, pt found to have RUL pneumonia consistent with aspiration pneumonia. Pt admitted to ICU. CT head consistent with [place]. ECG c/w diffuse ischemia. Troponins elevated and trending upwards. Past History Past Medical History: other (asthma) Past Surgical History: No surgical history Social history: single. denies: smoking, alcohol abuse, prescription drug abuse Family history: hypertension Medications and Allergies Allergies Allergy/AdvReac Type Severity Reaction Status Date / Time No Known Allergies Allergy Unverified 08/18/17 17:14 Home Medications Medication Instructions Recorded Confirmed Last Taken Type predniSONE [Deltasone] 50 mg PO QDAY #5 tab 09/26/16 04/04/17 Unknown Rx ALBUTEROL Inhaler 2 puff INHALATION BID 04/03/17 04/04/17 04/03/17 History Advair 100-50 Diskus 2 puff INHALATION BID 04/03/17 04/04/17 04/04/17 History Lisinopril 20 mg PO DAILY 04/03/17 04/04/17 04/03/17 History Montelukast 10 mg PO DAILY 04/03/17 04/04/17 04/03/17 History amLODIPine 5 mg PO DAILY 04/03/17 04/04/17 04/03/17 History ALBUTEROL Inhaler [ProAir HFA 2 puff IH QID PRN #1 inhalation 06/24/17 Unknown Rx Inhaler] ALBUTEROL NEB's [Proventil 0.083% 2.5 mg IH TID PRN #90 neb 06/24/17 Unknown Rx NEBS] Mometasone Furoate [Asmanex] 1 inhalation IH QPM #1 inhalation 06/24/17 Unknown Rx predniSONE [Deltasone] 60 mg PO QDAY #20 tab 06/24/17 Unknown Rx Active Meds: Active Medications Albuterol (Proventil) 2.5 mg IH Q3HRT PRN PRN Reason: Shortness Of Breath Albuterol/Ipratropium (Duoneb *Not For Prn Use*) 1 ampul IH Q4HRT MARK Last Admin: 08/19/17 12:34 Dose: 1 ampul Lipase/Protease/Amylase (Pancreaze Dr 10,500 Unit) 1 each FEEDTUBE PRN PRN PRN Reason: For Clogged Feeding Tube Famotidine (Pepcid) 20 mg IV BID MARK Last Admin: 08/19/17 11:52 Dose: Not Given Heparin Sodium (Porcine) (Heparin) 5,000 unit SUB-Q Q8HR MARK Hydrophilic Ointment (Vaseline Lip Therapy) 1 applic TP Q2HR PRN PRN Reason: Dry Lips Vasopressin 20 unit/ Sodium (Chloride) 101 mls @ 9.09 mls/hr IV TITR MARK; Protocol Last Admin: 08/19/17 07:52 Dose: 0.03 units/min, 9.09 mls/hr Norepinephrine (Levophed Drip 4 Mg/Ns 250 Ml) 4 mg in 250 mls @ 7.5 mls/hr IV TITR MARK; Protocol Last Titration: 08/19/17 09:48 Dose: 0 mcg/min, 0 mls/hr Dextrose/Sodium Chloride (D5/0.45ns) 1,000 mls @ 100 mls/hr IV DIRECT MARK Last Admin: 08/19/17 14:07 Dose: 100 mls/hr Levofloxacin/Dextrose (Levaquin 750mg/150ml) 750 mg in 150 mls @ 100 mls/hr IV Q24HR MARK Stop: 08/24/17 11:29 Multi-Ingred Cream/Lotion/Oil/Oint (Artificial Tears Ophth Oint) 1 applic OU Q4HR PRN PRN Reason: Dry Eye(s) Simple Syrup (Simple Syrup) 15 ml FEEDTUBE PRN PRN PRN Reason: Hypoglycemia Simple Syrup (Simple Syrup) 30 ml FEEDTUBE PRN PRN PRN Reason: Hypoglycemia Sodium Bicarbonate (Sodium Bicarbonate) 325 mg FEEDTUBE PRN PRN PRN Reason: For Clogged Feeding Tube Sodium Chloride (Nacl 0.9% 500 Ml) 1 ml IV DIRECT MARK Sodium Chloride (Sodium Chloride Flush Syringe 10 Ml) 10 ml IV BID MARK Last Admin: 08/19/17 11:53 Dose: 10 ml Sodium Chloride (Sodium Chloride Flush Syringe 10 Ml) 10 ml IV PRN PRN PRN Reason: LINE FLUSH Review of Systems ROS unobtainable: due to endotracheal tube, due to mental status Physical Examination Vital Signs Pulse Ox 100 08/18/17 14:50 General appearance: other (intubated) Neck: Positive: neck supple, trachea midline Cardiac: Positive: Reg Rate and Rhythm, S1/S2 Lungs: Positive: Rhonchi (expiratory), Oxygen, Ventilated Respirations Neuro: Positive: Other (unresponsive) Skin: Positive: Clear. Negative: Rash, Wound Musculoskeletal: No Fluid Collection, No Pain, Normal Range of Motion Extremities: Absent: edema Results 08/18/17 15:15 08/19/17 06:15 Cardiac Enzymes 08/18/17 08/18/17 08/19/17 Range/Units 15:15 15:15 06:15 AST 55 H 206 H (5-40) units/L CK-MB (CK-2) 1.9 (0.0-4.0) ng/mL Coagulation 08/18/17 Range/Units 15:15 PT 18.2 H (12.2-14.9) Sec. INR 1.42 H (0.87-1.13) Lipids 08/18/17 Range/Units 17:54 Triglycerides 48 (2-149) mg/dL Cholesterol 134 (50-199) mg/dL HDL Cholesterol 49 (40-59) mg/dL Cholesterol/HDL Ratio 2.73 % CBC 08/18/17 Range/Units 15:15 WBC 10.1 (4.5-11.0) K/mm3 RBC 3.95 (3.65-5.03) M/mm3 Hgb 12.2 (10.1-14.3) gm/dl Hct 39.4 (30.3-42.9) % Plt Count 169 (140-440) K/mm3 Lymph # Neonatal Social Worker Baso # Neonatal Social Worker Comprehensive Metabolic Panel 08/18/17 08/19/17 Range/Units 15:15 06:15 Sodium 139 154 H D (137-145) mmol/L Potassium 3.6 3.5 L (3.6-5.0) mmol/L Chloride 95.7 L 113.7 H (98-107) mmol/L Carbon Dioxide 15 L 24 D (22-30) mmol/L BUN 15 26 H (7-17) mg/dL Creatinine 1.2 1.6 H (0.7-1.2) mg/dL Glucose 480 H 204 H (65-100) mg/dL Calcium 7.9 L 7.8 L (8.4-10.2) mg/dL AST 55 H 206 H (5-40) units/L ALT 72 H 217 H (7-56) units/L Alkaline Phosphatase 85 96 (35-129) units/L Total Protein 5.6 L 5.9 L (6.3-8.2) g/dL Albumin 3.3 L 3.3 L (3.9-5) g/dL - Imaging and Cardiology Echo: pending EKG: report reviewed, image reviewed EKG interpretations - Telemetry EKG Rhythm: Sinus Rhythm - EKG Sinus rhythms and dysrhythmias: sinus rhythm Repolarization changes or abnormalities: ST or T wave suggestive of ischemia ( diffuse) Assessment and Plan Assessment: S/p PEA arrest NSTEMI type I Abnormal ECG - consistent with diffuse ischemia Acute respiratory failure - intubated PNA - ? aspiration AMS - head CT c/w diffuse anoxic injury Metabolic acidosis Hypernatremia Elevated DDimer - chest CTA negative for PE H/o asthma Plan: Initiate heparin gtt. Cont serial ECGs. Obtain echo. Consider ischemic evaluation once medically stabilized. Pt with "probably brain " per neurology. Assessment and plan reviewed with pt's family members at bedside. The patient has been seen in conjunction with Dr. Morton who agrees with the assessment and plan of care.
[2017-08-19] MEDS: HEPARIN/ 0.45% NACL-25,000 UNIT/500 ML 25,000 UNIT/500 ML BAG IV SCH (16:10)
[2017-08-19 18:10] LABS: Hemoglobin 13.2 gm/dl (10.1-14.3)
[2017-08-19 18:29] LABS: Creatine Kinase MB 10.9 ng/mL (0.0-4.0)
[2017-08-19 18:41] LABS: INR 1.29 (0.87-1.13)
[2017-08-19 18:42] LABS: Partial Thromboplastin Time 43.9 Sec. (24.2-36.6)
--- NOTE | 2017-08-19 19:07 | XRay Report ---
FINAL REPORT EXAM: XR ABDOMEN 1V AP HISTORY: [place] sump placement TECHNIQUE: Limited supine views of the abdomen PRIORS: None. FINDINGS: Nasogastric tube is in place and looped within the upper stomach. Both the tip and side port are present within the stomach. The bowel gas pattern is nonspecific. No free air is identified. Soft tissues have no evidence for mass shadows or calcifications. The bony structures are intact. IMPRESSION: Satisfactory placement of a nasogastric tube within the stomach.
--- NOTE | 2017-08-19 21:17 | Consultation ---
CONSULTING PHYSICIAN: Dr. Monzon. REASON FOR CONSULTATION: Acute hypoxemic respiratory failure, on mechanical ventilator support, status post out of hospital cardiac arrest. CHIEF COMPLAINT AND HISTORY OF PRESENT ILLNESS: The patient is a 61-year-old -Lithuanian female with past medical history significant, perhaps in this context both for a diagnosis of chronic obstructive lung disease that was not home oxygen dependent, but also a history of obesity, was brought into the Emergency Room by EMS. According to the son who was with her, she had come back from a recent trip to [place], [place] about 2 hours away from here and has started complaining of feeling hot and was a little bit diaphoretic, this happened just pretty suddenly as far as she can tell. He stated that he knew she was in some trouble. He tried to call AMS; however, she looks like she stopped breathing before they came. When they came, the patient was found to be essentially in a PEA arrest. It seems like resuscitative efforts and CPR were done both outside and also in the Emergency Room, intubation seems to have happened in the Emergency Room and post-intubation, she was brought up to the Intensive Care Unit where I stopped by to see her. There was reported a possible debris and right lower lobe infiltrate on the chest x-ray. When I stopped by to see her, she was lying in bed. She was not on any sedation. She was on the ventilator. She was really not responsive. Pupils were dilated and very sluggishly if at all reactive. I do not have any history of nausea, vomiting, although I cannot rule that out. She does not have any history of seizures. With regards to her tobacco use or abuse history, the family had denied smoking that is as much of the history of presentation as I have. PAST MEDICAL HISTORY: Chronic obstructive lung disease, hypertension. She is obese. PAST SURGICAL HISTORY: Unknown. MEDICATIONS: She was on at the time I stopped by to see her, included the following: DuoNeb nebulizer treatments scheduled q.4 hours, Unasyn 3 g IV q.6 hours, Pepcid 20 mg IV b.i.d., Levophed drip had been going at 2 mcg per minute earlier, vasopressin at 0.03 units per minute. ALLERGIES: No known drug allergies. DIET: Obese lady. Family denies acute weight loss or gain in the preceding few weeks to months. FAMILY AND SOCIAL HISTORY: Lives in the community. They had denied alcohol, tobacco, illicit drug use or abuse. FAMILY HISTORY: Positive for hypertension. REVIEW OF SYSTEMS: Really unobtainable secondary to patient's medical and mental condition since she has been here, though no gross hematochezia or melena, no gross hematuria, no witnessed seizures. No hematemesis. Complete 13 review of system was attempted to be gotten; however, it is as in body of history above or unobtainable. PHYSICAL EXAMINATION: At presentation in the Emergency Room, VITAL SIGNS: She was hypothermic 95.2 degrees Fahrenheit, pulse of 122, respiratory rate 24, blood pressure at initial presentation 121/88, oxygen sats at that point would reported as 64% as low as 47%. Inspired oxygen concentration was not recorded. GENERAL: Obese elderly looking -Lithuanian female normocephalic, atraumatic on the mechanical ventilator, in mild distress. HEAD, EYES, EARS, NOSE AND THROAT: She is anicteric. No conjunctival erythema. Grossly, no palpable lymph nodes in the supraclavicular or submandibular lymph node chains. No gross jugular venous distention. She has I believe a left IJ central line in place. No gross thyromegaly. LUNGS: Auscultation of both lung valencia, some scattered rhonchi in the bases, otherwise clear. No wheezing. HEART: Heart sounds 1 and 2 are heard at the time of my evaluation, regular rate and rhythm. No rubs, no murmurs. ABDOMEN: Soft, full, bowel sounds are positive, did not appear tender. No palpable hepatosplenomegaly. EXTREMITIES: Without overt digital clubbing, cyanosis, or pedal edema. Dorsalis pedis pulses were weakly palpable. NEUROLOGIC: The pupils were about 5 to 6 mm. They appeared to be nonresponsive. Extraocular muscle movements were not observed and she did not have any spontaneous movements to extremities. LABORATORY DATA: From my review are as follows: White cell count 10,100, hemoglobin 12.2, hematocrit 39.4, platelet count 169,000. No band forms reported. INR 1.42. D-dimer greater than 10,000. Venous blood gas at presentation showed a pH of 6.79. Serum sodium was 139, potassium 3.6, chloride 96, bicarbonate 15, BUN 15, creatinine 1.2, glucose 480. Lactic acid level was 13.9, AST and ALT slightly elevated at 55 and 72 respectively. Troponin was within normal limits. LDL cholesterol 83. Urinalysis was unremarkable. Her arterial blood gas most recent is now 7.49 on the pH, pCO2 of 33, pO2 of 173. Serum sodium is up to 154, creatinine is 1.6 now with a BUN of 26. Lactic acid level is down to 2.7, AST and ALT are still in this is about 206/217. Troponin has peaked at 0.86 at this point. Blood cultures, urine cultures, no growth to date. CT scan of the head was done. I have reviewed the dictation and it mentions of abnormal homogeneous density of the brain, lack of de la fuente and white matter identification and bothersome for diffuse anoxic encephalopathy. CT scan of the abdomen and pelvis was also done, possible acute cholecystitis and the uterus with multiple fibroids. A CT angiogram of the chest was also done as was the chest x-ray: ET tube is in good position. Left IJ tip appears to be in the brachiocephalic/superior SVC level. The CT angiogram, I have reviewed the radiologist's interpretation. Again, no PE on the interpretation. The main finding appears to be consolidation involving mostly the right upper lobe. I do not see any gross filling defects consistent with pulmonary emboli. Lung windows really do not show a whole lot in the lower lobes. This appears to be mostly a right upper lobe/right middle lobe process, no gross pneumothorax, no gross bony fracture. ASSESSMENT: 1. Acute hypoxemic respiratory failure, on mechanical ventilator support. 2. Possible right upper lobe aspiration pneumonia. 3. Out of hospital cardiac arrest. 4. 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 5. History of chronic obstructive pulmonary disease. 6. Obesity. 7. Hypertension. PLAN: I will first of all say that the overall picture looks really bothersome for nonreversible neurologic injury. I have asked the family members to discuss amongst themselves. She has 3 kids and they are all around in the room as they will probably be needing to make a decision and the decision hopefully will be a unanimous decision. Respiratory townsend, we will keep him on full mechanical ventilator support in the short time. She will remain on the current ventilator settings, which is tidal volume 500, rate of 16, positive end expiratory pressure of 5, assist control mode. Oxygen will be weaned to keep sats greater than or equal to about 92 to 94%. Aspiration precautions will be maintained. Ventilator associated pneumonia bundle will be addressed daily. Bronchodilators will be continued. I will reduce the frequency. She will be continued on empiric antibiotic therapy in the short time; however, I suspect I will be soon deescalating it and actually, I will probably drop that and change it to Levaquin monotherapy at this time. Anti-infective will ultimately be deescalated based on the results of clinical and microbiologic data. Vasopressors are being weaned off at this time keeping mean arterial pressures greater than or equal to about 65 mmHg. She is appropriately on gastroesophageal prophylaxis. Venous thromboembolic disorder workup could probably be extended to involve the bilateral lower extremity Dopplers, but I think that at this point, we will first wait on the neurological evaluation and on the family's decision as to care going forward. Enteral nutrition will be the feeding modality of choice. Flu and pneumonia vaccination will be addressed per protocol. Thank you very much for the consult Dr. Monzon and Dr. Chapman. We will follow along. We will make further recommendations as picture progresses/becomes clearer. At this time, I spent about 35 to 40 minutes of critical care time without overlap and excluding any procedural time that may be necessary. She is critically ill on life-sustaining interventions including mechanical ventilator support and at high risk for further deterioration including . JOB# [id number] CHICHI/KHANG RYAN
[2017-08-19] MEDS ORDERED: HEPARIN SUB-Q SCH (22:00)
[2017-08-20] MEDS: D5/0.45NS 1,000 ML IV SCH ×3 (00:14→21:46)
[2017-08-20] MEDS: DUONEB *Not for PRN Use IH SCH ×4 (01:05→19:24)
--- NOTE | 2017-08-20 03:54 | XRay Report ---
FINAL REPORT PROCEDURE: XR CHEST 1V AP TECHNIQUE: Chest radiograph anteroposterior view. CPT 56157 HISTORY: follow up respiratory failure COMPARISON: 08/18/2017 FINDINGS: Heart: Normal. Mediastinum/Vessels: Normal. Lungs/Pleural space: Lungs are expanded. There is mild vascular congestion. There are no active infiltrates. There is no pleural effusion or pneumothorax.. Bony thorax: No acute osseous abnormality. Life support devices: Endotracheal tube is in the mid trachea. NG tube is in the stomach. There is a left-sided central venous catheter. The tip is at the superior vena cava.. IMPRESSION: Heart size is normal. Lungs are expanded. There is mild vascular congestion. There are no active infiltrates. There is no pleural effusion or pneumothorax.. Endotracheal tube is in the mid trachea. NG tube is in the stomach. There is a left-sided central venous catheter. The tip is at the superior vena cava..
[2017-08-20] MEDS: Vasostrict 20 UNIT in NACL 0.9% 100 ML IV SCH ×2 (05:00→14:07)
--- NOTE | 2017-08-20 09:04 | Progress Note ---
Assessment and Plan Cardiopulmonary arrest, PEA Acute Respiratory failure with hypoxia Aspiration pneumonia Shock multifactorial Aspiration pneumonia Metabolic acidosis, secondary to hypoperfusion Elevated troponin Hypernatremia, on hypotonic fluid NIRANJAN, likely tubular necrosis from hypotension(improving Cr) -Continue with mechanical ventilatory support -Supplemental oxygen to keep O2 sats>94% -Heparin infusion -East catheter in this patient critically ill patient -Supportive care -Vasopressor support to keep MAP>65 -Monitor and correct all electrolyte abnormality -Empiric antibiotics -CTA was negative for PE but had an upper lobe opacity The aggregate critical care time was [35] minutes. This time is in addition to time spent performing reported procedures but includes the following: [x] Data Review and interpretation [x] Patient assessment and monitoring of vital signs [x] Documentation [x] Medication orders and management Family discussion Her 2 sons, one daughter and a daughter in law were present. The findings on nuclear medicine brain flow scans were discussed extensively with her. They wanted to know if she had a heart attack or not...I did explain that it is a possibility but CPR, with chest compressions can also cause elevation in troponin and mimic a heart attack. She clinically does not have any brain stem function and based on nuclear medicine brain flow scan is brain . I have explained to them that I will get a second physician to confirm my findings. I spoke with the neurologist, Dr. Keene who states he will be here tomorrow morning for brain determination and documentation [facility] was notified by the nursing staff [employer] was offered to the patient's family Subjective Date of service: 08/20/17 Interval history: HISTORY PER MEDICAL RECORDS The pt is a 61 YO female with a past medical history significant for asthma. She is previously unknown to our practice. Patient is intubated on evaluation and thus HPI is obtained per the chart and per patient daughter at bedside. Per patient daughter, patient has been feeling well and in her normal state of health. This past weekend, the patient drove to [place], [place], and back. The patient returned from [place] yesterday and arrived home without incident. Around 1PM yesterday, the pt c/o increased SOB and diaphoresis. The pt took several of her breathing treatments without relief and then suddenly became unresponsive at home. This was witnessed by patient's son. Per the chart, patient was in cardiac arrest when EMS arrived and they initiated ACLS protocol. The patient was in PEA most of the ride to the ED. Following [facility] arrival, pt found to have RUL pneumonia consistent with aspiration pneumonia. Patient admitted to ICU. CT head consistent with AUSTEN. ECG c/w diffuse ischemia. Troponins elevated and trending upwards. Patient seen today for: s/p cardiac arrest with AUSTEN on CT head, aspiration pneumonia, acute hypoxic respiratory failure Seen and examined at bedside; 24-hour events reviewed; nursing and respiratory care staff consulted; no adverse overnight events reported to me; Vitals, labs, medications, chart reviewed. Discussed in interdisciplinary rounds Has no flow on the brain flow nuclear medicine Objective Vital Signs - 12hr 08/19/17 08/19/17 08/19/17 21:15 21:30 21:45 Temperature Pulse Rate 94 H 94 H 93 H Pulse Rate [ Anterior Bilateral Throughout] Respiratory 16 16 16 Rate Respiratory Rate [Anterior Bilateral Throughout] Blood Pressure 96/65 99/62 103/66 O2 Sat by Pulse 98 98 98 Oximetry 08/19/17 08/19/17 08/19/17 22:00 22:15 22:30 Temperature Pulse Rate 92 H 93 H 93 H Pulse Rate [ Anterior Bilateral Throughout] Respiratory 15 16 14 Rate Respiratory Rate [Anterior Bilateral Throughout] Blood Pressure 94/67 105/66 99/69 O2 Sat by Pulse 98 100 98 Oximetry 08/19/17 08/19/17 08/19/17 22:45 23:00 23:15 Temperature Pulse Rate 92 H 93 H 91 H Pulse Rate [ Anterior Bilateral Throughout] Respiratory 16 16 13 Rate Respiratory Rate [Anterior Bilateral Throughout] Blood Pressure 98/65 97/66 103/69 O2 Sat by Pulse 98 98 Oximetry 08/19/17 08/19/17 08/19/17 23:18 23:28 23:30 Temperature Pulse Rate 92 H 91 H 91 H Pulse Rate [ Anterior Bilateral Throughout] Respiratory 16 17 Rate Respiratory Rate [Anterior Bilateral Throughout] Blood Pressure 97/66 96/65 102/65 O2 Sat by Pulse 100 100 100 Oximetry 08/19/17 08/19/17 08/20/17 23:45 23:57 00:00 Temperature 97.9 F Pulse Rate 92 H 92 H Pulse Rate [ Anterior Bilateral Throughout] Respiratory 12 16 Rate Respiratory Rate [Anterior Bilateral Throughout] Blood Pressure 99/71 99/71 O2 Sat by Pulse 96 Oximetry 08/20/17 08/20/17 08/20/17 00:15 00:30 00:45 Temperature Pulse Rate 92 H 92 H 90 Pulse Rate [ Anterior Bilateral Throughout] Respiratory 14 16 17 Rate Respiratory Rate [Anterior Bilateral Throughout] Blood Pressure 101/65 103/71 102/67 O2 Sat by Pulse 97 98 98 Oximetry 08/20/17 08/20/17 08/20/17 01:00 01:05 01:14 Temperature Pulse Rate 92 H Pulse Rate [ 91 H 93 H Anterior Bilateral Throughout] Respiratory 16 Rate Respiratory 16 16 Rate [Anterior Bilateral Throughout] Blood Pressure 95/69 O2 Sat by Pulse 97 Oximetry 08/20/17 08/20/17 08/20/17 01:15 01:30 01:45 Temperature Pulse Rate 92 H 93 H 93 H Pulse Rate [ Anterior Bilateral Throughout] Respiratory 16 16 15 Rate Respiratory Rate [Anterior Bilateral Throughout] Blood Pressure 105/73 105/64 95/65 O2 Sat by Pulse 98 98 Oximetry 08/20/17 08/20/17 08/20/17 02:00 02:15 02:30 Temperature Pulse Rate 93 H 92 H 93 H Pulse Rate [ Anterior Bilateral Throughout] Respiratory 15 14 12 Rate Respiratory Rate [Anterior Bilateral Throughout] Blood Pressure 105/68 102/64 98/63 O2 Sat by Pulse 97 99 Oximetry 08/20/17 08/20/17 08/20/17 02:45 03:00 03:15 Temperature Pulse Rate 95 H 90 89 Pulse Rate [ Anterior Bilateral Throughout] Respiratory 12 16 16 Rate Respiratory Rate [Anterior Bilateral Throughout] Blood Pressure 101/71 85/54 92/58 O2 Sat by Pulse 99 99 99 Oximetry 08/20/17 08/20/17 08/20/17 03:21 03:30 03:45 Temperature Pulse Rate 89 90 90 Pulse Rate [ Anterior Bilateral Throughout] Respiratory 16 16 Rate Respiratory Rate [Anterior Bilateral Throughout] Blood Pressure 92/58 126/78 126/82 O2 Sat by Pulse 100 99 Oximetry 08/20/17 08/20/17 08/20/17 03:48 04:00 04:15 Temperature 98.9 F Pulse Rate 89 89 Pulse Rate [ Anterior Bilateral Throughout] Respiratory 16 16 Rate Respiratory Rate [Anterior Bilateral Throughout] Blood Pressure 128/85 143/93 O2 Sat by Pulse 99 99 Oximetry 08/20/17 08/20/17 08/20/17 04:29 04:30 04:46 Temperature Pulse Rate 90 89 Pulse Rate [ Anterior Bilateral Throughout] Respiratory 16 16 16 Rate Respiratory Rate [Anterior Bilateral Throughout] Blood Pressure 126/80 121/77 O2 Sat by Pulse 100 99 98 Oximetry 08/20/17 08/20/17 08/20/17 05:00 05:15 05:30 Temperature Pulse Rate 88 88 86 Pulse Rate [ Anterior Bilateral Throughout] Respiratory 16 16 16 Rate Respiratory Rate [Anterior Bilateral Throughout] Blood Pressure 114/77 110/74 105/66 O2 Sat by Pulse 98 99 98 Oximetry 08/20/17 08/20/17 08/20/17 05:45 06:00 06:15 Temperature Pulse Rate 86 85 84 Pulse Rate [ Anterior Bilateral Throughout] Respiratory 16 16 16 Rate Respiratory Rate [Anterior Bilateral Throughout] Blood Pressure 100/68 109/65 101/65 O2 Sat by Pulse 99 98 99 Oximetry 08/20/17 08/20/17 08/20/17 06:30 06:45 07:00 Temperature Pulse Rate 84 83 83 Pulse Rate [ Anterior Bilateral Throughout] Respiratory 16 16 16 Rate Respiratory Rate [Anterior Bilateral Throughout] Blood Pressure 97/68 101/70 101/67 O2 Sat by Pulse 99 99 99 Oximetry 08/20/17 08/20/17 08/20/17 07:15 07:30 07:45 Temperature Pulse Rate 82 82 81 Pulse Rate [ Anterior Bilateral Throughout] Respiratory 16 16 16 Rate Respiratory Rate [Anterior Bilateral Throughout] Blood Pressure 100/66 104/66 106/69 O2 Sat by Pulse 99 99 100 Oximetry 08/20/17 08/20/17 08:00 08:15 Temperature Pulse Rate 81 81 Pulse Rate [ Anterior Bilateral Throughout] Respiratory 16 16 Rate Respiratory Rate [Anterior Bilateral Throughout] Blood Pressure 97/64 101/69 O2 Sat by Pulse 99 99 Oximetry Constitutional: no acute distress, comatose, other (unresponsive, orally intubated to MVS) Eyes: non-icteric, other (pupils are fixed and dilated) ENT: oropharynx moist Neck: supple Effort: normal Cardiovascular: regular rate and rhythm, murmur noted (S1,S2 no murmurs) Gastrointestinal: normoactive bowel sounds, soft, non-tender, non-distended Integumentary: normal Extremities: no cyanosis, no edema, pink and warm, pulses normal Neurologic: other (unresponsive, no gag reflex, no cough reflex) CBC and BMP: 08/19/17 17:49 08/20/17 13:12 ABG, PT/INR, D-dimer: ABG POC ABG pH 7.401 (7.35-7.45) 08/20/17 04:11 POC ABG pCO2 44.2 (35-45) 08/20/17 04:11 POC ABG pO2 137 (80-105) H 08/20/17 04:11 POC ABG HCO3 27.4 08/20/17 04:11 POC ABG Total CO2 29 08/20/17 04:11 POC ABG O2 Sat 99 08/20/17 04:11 PT/INR, D-dimer PT 16.8 Sec. (12.2-14.9) H 08/19/17 17:49 INR 1.29 (0.87-1.13) H 08/19/17 17:49 D-Dimer > 89729 ng/mlDDU (0-234) H 08/18/17 15:15 Abnormal lab findings: Abnormal Labs 08/18/17 08/18/17 08/18/17 15:15 15:15 15:15 MCV 100 H Seg Neuts % (Manual) 34.0 L Lymphocytes % (Manual) 59.0 H Lymphocytes # (Manual) 6.0 H PT 18.2 H INR 1.42 H APTT D-Dimer > 49352 H POC ABG pH POC ABG pCO2 POC ABG pO2 VBG pH Sodium Potassium Chloride 95.7 L Carbon Dioxide 15 L BUN Creatinine Glucose 480 H POC Glucose Lactic Acid Calcium 7.9 L AST 55 H ALT 72 H Total Creatine Kinase CK-MB (CK-2) Troponin T Total Protein 5.6 L Albumin 3.3 L 08/18/17 08/18/17 08/18/17 15:15 15:15 15:15 MCV Seg Neuts % (Manual) Lymphocytes % (Manual) Lymphocytes # (Manual) PT INR APTT D-Dimer POC ABG pH POC ABG pCO2 POC ABG pO2 VBG pH 6.787 L* Sodium Potassium Chloride Carbon Dioxide BUN Creatinine Glucose POC Glucose Lactic Acid 13.90 H* Calcium AST ALT Total Creatine Kinase 170 H CK-MB (CK-2) Troponin T Total Protein Albumin 08/18/17 08/18/17 08/18/17 16:21 16:22 17:54 MCV Seg Neuts % (Manual) Lymphocytes % (Manual) Lymphocytes # (Manual) PT INR APTT D-Dimer POC ABG pH 7.161 L POC ABG pCO2 73.3 H POC ABG pO2 243 H VBG pH Sodium Potassium Chloride Carbon Dioxide BUN Creatinine Glucose POC Glucose Lactic Acid 8.30 H* 6.00 H* Calcium AST ALT Total Creatine Kinase CK-MB (CK-2) Troponin T Total Protein Albumin 08/18/17 08/18/17 08/18/17 17:54 18:50 21:55 MCV Seg Neuts % (Manual) Lymphocytes % (Manual) Lymphocytes # (Manual) PT INR APTT D-Dimer POC ABG pH POC ABG pCO2 POC ABG pO2 VBG pH Sodium Potassium Chloride Carbon Dioxide BUN Creatinine Glucose POC Glucose Lactic Acid 4.70 H* Calcium AST ALT Total Creatine Kinase CK-MB (CK-2) Troponin T 0.275 H* D 0.858 H* D Total Protein Albumin 08/18/17 08/18/17 08/19/17 21:55 22:20 01:25 MCV Seg Neuts % (Manual) Lymphocytes % (Manual) Lymphocytes # (Manual) PT INR APTT D-Dimer POC ABG pH POC ABG pCO2 50.0 H POC ABG pO2 VBG pH Sodium Potassium Chloride Carbon Dioxide BUN Creatinine Glucose POC Glucose 166 H Lactic Acid 4.40 H* Calcium AST ALT Total Creatine Kinase CK-MB (CK-2) Troponin T Total Protein Albumin 08/19/17 08/19/17 08/19/17 05:33 06:15 06:15 MCV Seg Neuts % (Manual) Lymphocytes % (Manual) Lymphocytes # (Manual) PT INR APTT D-Dimer POC ABG pH 7.488 H POC ABG pCO2 33.1 L POC ABG pO2 173 H VBG pH Sodium 154 H D Potassium 3.5 L Chloride 113.7 H Carbon Dioxide BUN 26 H Creatinine 1.6 H Glucose 204 H POC Glucose Lactic Acid 2.70 H* Calcium 7.8 L AST 206 H ALT 217 H Total Creatine Kinase CK-MB (CK-2) Troponin T Total Protein 5.9 L Albumin 3.3 L 08/19/17 08/19/17 08/20/17 17:49 17:49 04:11 MCV Seg Neuts % (Manual) Lymphocytes % (Manual) Lymphocytes # (Manual) PT 16.8 H INR 1.29 H APTT 43.9 H D-Dimer POC ABG pH POC ABG pCO2 POC ABG pO2 137 H VBG pH Sodium Potassium Chloride Carbon Dioxide BUN Creatinine Glucose POC Glucose Lactic Acid Calcium AST ALT Total Creatine Kinase 2322 H CK-MB (CK-2) 10.9 H Troponin T 0.231 H* D Total Protein Albumin Chest x-ray: image reviewed (hypoventilatory, ETT in position, feeding tube, LIJ CVC)
[2017-08-20] MEDS: PEPCID IV SCH ×2 (10:04→21:46)
[2017-08-20] MEDS: LEVAQUIN 750MG/150ML 750 MG/150 ML BAG IV SCH (10:05)
[2017-08-20] MEDS: SODIUM CHLORIDE FLUSH SYRINGE 10 ML IV SCH (10:06)
--- NOTE | 2017-08-20 10:36 | Progress Note ---
Subjective Date of service: 08/20/17 Principal diagnosis: Anoxic brain injury. Interval history: No significant changes since yesterday Objective - Vital Sign Vital Signs - 12hr 08/19/17 08/19/17 08/19/17 22:45 23:00 23:15 Temperature Pulse Rate 92 H 93 H 91 H Pulse Rate [ Anterior Bilateral Throughout] Respiratory 16 16 13 Rate Respiratory Rate [Anterior Bilateral Throughout] Blood Pressure 98/65 97/66 103/69 O2 Sat by Pulse 98 98 Oximetry 08/19/17 08/19/17 08/19/17 23:18 23:28 23:30 Temperature Pulse Rate 92 H 91 H 91 H Pulse Rate [ Anterior Bilateral Throughout] Respiratory 16 17 Rate Respiratory Rate [Anterior Bilateral Throughout] Blood Pressure 97/66 96/65 102/65 O2 Sat by Pulse 100 100 100 Oximetry 08/19/17 08/19/17 08/20/17 23:45 23:57 00:00 Temperature 97.9 F Pulse Rate 92 H 92 H Pulse Rate [ Anterior Bilateral Throughout] Respiratory 12 16 Rate Respiratory Rate [Anterior Bilateral Throughout] Blood Pressure 99/71 99/71 O2 Sat by Pulse 96 Oximetry 08/20/17 08/20/17 08/20/17 00:15 00:30 00:45 Temperature Pulse Rate 92 H 92 H 90 Pulse Rate [ Anterior Bilateral Throughout] Respiratory 14 16 17 Rate Respiratory Rate [Anterior Bilateral Throughout] Blood Pressure 101/65 103/71 102/67 O2 Sat by Pulse 97 98 98 Oximetry 08/20/17 08/20/17 08/20/17 01:00 01:05 01:14 Temperature Pulse Rate 92 H Pulse Rate [ 91 H 93 H Anterior Bilateral Throughout] Respiratory 16 Rate Respiratory 16 16 Rate [Anterior Bilateral Throughout] Blood Pressure 95/69 O2 Sat by Pulse 97 Oximetry 08/20/17 08/20/17 08/20/17 01:15 01:30 01:45 Temperature Pulse Rate 92 H 93 H 93 H Pulse Rate [ Anterior Bilateral Throughout] Respiratory 16 16 15 Rate Respiratory Rate [Anterior Bilateral Throughout] Blood Pressure 105/73 105/64 95/65 O2 Sat by Pulse 98 98 Oximetry 08/20/17 08/20/17 08/20/17 02:00 02:15 02:30 Temperature Pulse Rate 93 H 92 H 93 H Pulse Rate [ Anterior Bilateral Throughout] Respiratory 15 14 12 Rate Respiratory Rate [Anterior Bilateral Throughout] Blood Pressure 105/68 102/64 98/63 O2 Sat by Pulse 97 99 Oximetry 08/20/17 08/20/17 08/20/17 02:45 03:00 03:15 Temperature Pulse Rate 95 H 90 89 Pulse Rate [ Anterior Bilateral Throughout] Respiratory 12 16 16 Rate Respiratory Rate [Anterior Bilateral Throughout] Blood Pressure 101/71 85/54 92/58 O2 Sat by Pulse 99 99 99 Oximetry 08/20/17 08/20/17 08/20/17 03:21 03:30 03:45 Temperature Pulse Rate 89 90 90 Pulse Rate [ Anterior Bilateral Throughout] Respiratory 16 16 Rate Respiratory Rate [Anterior Bilateral Throughout] Blood Pressure 92/58 126/78 126/82 O2 Sat by Pulse 100 99 Oximetry 08/20/17 08/20/17 08/20/17 03:48 04:00 04:15 Temperature 98.9 F Pulse Rate 89 89 Pulse Rate [ Anterior Bilateral Throughout] Respiratory 16 16 Rate Respiratory Rate [Anterior Bilateral Throughout] Blood Pressure 128/85 143/93 O2 Sat by Pulse 99 99 Oximetry 08/20/17 08/20/17 08/20/17 04:29 04:30 04:46 Temperature Pulse Rate 90 89 Pulse Rate [ Anterior Bilateral Throughout] Respiratory 16 16 16 Rate Respiratory Rate [Anterior Bilateral Throughout] Blood Pressure 126/80 121/77 O2 Sat by Pulse 100 99 98 Oximetry 08/20/17 08/20/17 08/20/17 05:00 05:15 05:30 Temperature Pulse Rate 88 88 86 Pulse Rate [ Anterior Bilateral Throughout] Respiratory 16 16 16 Rate Respiratory Rate [Anterior Bilateral Throughout] Blood Pressure 114/77 110/74 105/66 O2 Sat by Pulse 98 99 98 Oximetry 08/20/17 08/20/17 08/20/17 05:45 06:00 06:15 Temperature Pulse Rate 86 85 84 Pulse Rate [ Anterior Bilateral Throughout] Respiratory 16 16 16 Rate Respiratory Rate [Anterior Bilateral Throughout] Blood Pressure 100/68 109/65 101/65 O2 Sat by Pulse 99 98 99 Oximetry 08/20/17 08/20/17 08/20/17 06:30 06:45 07:00 Temperature Pulse Rate 84 83 83 Pulse Rate [ Anterior Bilateral Throughout] Respiratory 16 16 16 Rate Respiratory Rate [Anterior Bilateral Throughout] Blood Pressure 97/68 101/70 101/67 O2 Sat by Pulse 99 99 99 Oximetry 0308/20/17 08/20/17 07:15 07:30 07:45 Temperature Pulse Rate 82 82 81 Pulse Rate [ Anterior Bilateral Throughout] Respiratory 16 16 16 Rate Respiratory Rate [Anterior Bilateral Throughout] Blood Pressure 100/66 104/66 106/69 O2 Sat by Pulse 99 99 100 Oximetry 08/20/17 08/20/17 08/20/17 08:00 08:15 08:57 Temperature Pulse Rate 81 81 80 Pulse Rate [ Anterior Bilateral Throughout] Respiratory 16 16 Rate Respiratory Rate [Anterior Bilateral Throughout] Blood Pressure 97/64 101/69 102/66 O2 Sat by Pulse 99 99 100 Oximetry 08/20/17 08/20/17 09:09 09:21 Temperature Pulse Rate Pulse Rate [ 80 82 Anterior Bilateral Throughout] Respiratory Rate Respiratory 16 17 Rate [Anterior Bilateral Throughout] Blood Pressure O2 Sat by Pulse Oximetry - General Apperance Constitutional: other (Intubated, ventialted, no sedatives, no paralytics.) - EENT EENT: mucous membranes moist - Respiratory Respiratory: lungs clear, normal breath sounds, no respiratory distress - Cardiovascular Cardiovascular: regular rate, no murmurs Extremities: no peripheral edema bilat, no clubbing, cyanosis - Gastrointestinal Gastrointestinal: normoactive bowel sounds, soft - Neurologic Quique Coma Scale (3-15): 3 Cranial nerve examination: other (Pupils 6 mm, round, equal, not reactive. Face symmetric. No any movement to deep pains, no myoclonus. No corneal, no gag, no Doll's.) Reflexes: 0: ankle, bicep, knee, tricep - Laboratory Findings CBC and BMP: 08/19/17 17:49 08/19/17 06:15 Abnormal Lab Findings: Abnormal Labs 08/18/17 08/18/17 08/18/17 15:15 15:15 15:15 MCV 100 H Seg Neuts % (Manual) 34.0 L Lymphocytes % (Manual) 59.0 H Lymphocytes # (Manual) 6.0 H PT 18.2 H INR 1.42 H APTT D-Dimer > 67522 H POC ABG pH POC ABG pCO2 POC ABG pO2 VBG pH Sodium Potassium Chloride 95.7 L Carbon Dioxide 15 L BUN Creatinine Glucose 480 H POC Glucose Lactic Acid Calcium 7.9 L AST 55 H ALT 72 H Total Creatine Kinase CK-MB (CK-2) Troponin T Total Protein 5.6 L Albumin 3.3 L 08/18/17 08/18/17 08/18/17 15:15 15:15 15:15 MCV Seg Neuts % (Manual) Lymphocytes % (Manual) Lymphocytes # (Manual) PT INR APTT D-Dimer POC ABG pH POC ABG pCO2 POC ABG pO2 VBG pH 6.787 L* Sodium Potassium Chloride Carbon Dioxide BUN Creatinine Glucose POC Glucose Lactic Acid 13.90 H* Calcium AST ALT Total Creatine Kinase 170 H CK-MB (CK-2) Troponin T Total Protein Albumin 08/18/17 08/18/17 08/18/17 16:21 16:22 17:54 MCV Seg Neuts % (Manual) Lymphocytes % (Manual) Lymphocytes # (Manual) PT INR APTT D-Dimer POC ABG pH 7.161 L POC ABG pCO2 73.3 H POC ABG pO2 243 H VBG pH Sodium Potassium Chloride Carbon Dioxide BUN Creatinine Glucose POC Glucose Lactic Acid 8.30 H* 6.00 H* Calcium AST ALT Total Creatine Kinase CK-MB (CK-2) Troponin T Total Protein Albumin 08/18/17 08/18/17 08/18/17 17:54 18:50 21:55 MCV Seg Neuts % (Manual) Lymphocytes % (Manual) Lymphocytes # (Manual) PT INR APTT D-Dimer POC ABG pH POC ABG pCO2 POC ABG pO2 VBG pH Sodium Potassium Chloride Carbon Dioxide BUN Creatinine Glucose POC Glucose Lactic Acid 4.70 H* Calcium AST ALT Total Creatine Kinase CK-MB (CK-2) Troponin T 0.275 H* D 0.858 H* D Total Protein Albumin 08/18/17 08/18/17 08/19/17 21:55 22:20 01:25 MCV Seg Neuts % (Manual) Lymphocytes % (Manual) Lymphocytes # (Manual) PT INR APTT D-Dimer POC ABG pH POC ABG pCO2 50.0 H POC ABG pO2 VBG pH Sodium Potassium Chloride Carbon Dioxide BUN Creatinine Glucose POC Glucose 166 H Lactic Acid 4.40 H* Calcium AST ALT Total Creatine Kinase CK-MB (CK-2) Troponin T Total Protein Albumin 08/19/17 08/19/17 08/19/17 05:33 06:15 06:15 MCV Seg Neuts % (Manual) Lymphocytes % (Manual) Lymphocytes # (Manual) PT INR APTT D-Dimer POC ABG pH 7.488 H POC ABG pCO2 33.1 L POC ABG pO2 173 H VBG pH Sodium 154 H D Potassium 3.5 L Chloride 113.7 H Carbon Dioxide BUN 26 H Creatinine 1.6 H Glucose 204 H POC Glucose Lactic Acid 2.70 H* Calcium 7.8 L AST 206 H ALT 217 H Total Creatine Kinase CK-MB (CK-2) Troponin T Total Protein 5.9 L Albumin 3.3 L 08/19/17 08/19/17 08/20/17 17:49 17:49 04:11 MCV Seg Neuts % (Manual) Lymphocytes % (Manual) Lymphocytes # (Manual) PT 16.8 H INR 1.29 H APTT 43.9 H D-Dimer POC ABG pH POC ABG pCO2 POC ABG pO2 137 H VBG pH Sodium Potassium Chloride Carbon Dioxide BUN Creatinine Glucose POC Glucose Lactic Acid Calcium AST ALT Total Creatine Kinase 2322 H CK-MB (CK-2) 10.9 H Troponin T 0.231 H* D Total Protein Albumin
--- NOTE | 2017-08-20 11:07 | Progress Note ---
Assessment and Plan Assessment and plan: Patient is a 61-year-old female past medical history of asthma COPD and hypertension who is presenting cardiac arrest. Patient's family called 911 because of diaphoresis and shortness of breath. When EMS arrived they initiated ACLS protocol. The patient was in [place] most of the ride to the emergency department. // Anoxic brain damage Evident on ct head likely from severe hypoxia from cardiac arrest Miller flow scan today Neurology input noted. Await family decision. // Cardiac arrest Pt treated with ACLS protocol with return of perfusing rhythm, IV pressor support. cardiology consulted, preserved EF on 2d echo // Cardiogenic shock IV pressor support, IVF resuscitation, supportive care. // Aspiration pneumonia IV antibiotics, supplemental oxygen, CT chest showed right upper and middle love consolidation, likely from mucus plug vs underlying mass will defer to pulmonary for further recommendation //Acute Respiratory failure with hypoxia: Pt intubated, sedated on vent support, nebulizer therapy, supplemental oxygen, wean vent as tolerated, SBT daily, sedation holiday, daily ABG, Poor prognosis, Pulmonary consulted. // Metabolic acidosis IVF resuscitation, serial bmp, monitor uop q shift, //elevated troponine - likely due to cardiac arrest, cardiology consulted, started on heparin drip // hypernatremia, start on hypotonic fluid //NIRANJAN, likely tubular necrosis from hypotension - monitor renal function, start on iv fluid // DVT prophylaxis heparin The high probability of a clinically significant, sudden or life threatening deterioration of the [pulmonary, cardiac, renal] system(s) required my full and direct attention, intervention and personal management. The aggregate critical care time was [65] minutes. This time is in addition to time spent performing reported procedures but includes the following: [x] Data Review and interpretation [x] Patient assessment and monitoring of vital signs [x] Documentation [x] Medication orders and management History Interval history: Patient seen and examined, remains on mechanical ventilation, no clinical response despite being off sedation. family at bedside Hospitalist Physical - Physical exam Narrative exam: : General appearance: other (intubated) HEENT: atraumatic, constricted pupil Neck: Positive: neck supple, trachea midline Cardiac: Positive: Reg Rate and Rhythm, S1/S2 Lungs: Positive: Rhonchi (expiratory), Oxygen, Ventilated Respirations Neuro: Positive: Other (unresponsive) Skin: Positive: Clear. Negative: Rash, Wound Musculoskeletal: No Fluid Collection, No Pain, Extremities: Absent: edema Psych: unable to assess - Constitutional Vitals: Temp Pulse Resp BP Pulse Ox 98.9 F 82 17 102/66 100 08/20/17 03:48 08/20/17 09:21 08/20/17 09:21 08/20/17 08:57 08/20/17 08:57 General appearance: Present: other (intubated) Results - Labs CBC & Chem 7: 08/21/17 00:20 08/21/17 00:20 Labs: Laboratory Last Values WBC 10.1 K/mm3 (4.5-11.0) 08/18/17 15:15 RBC 3.95 M/mm3 (3.65-5.03) 08/18/17 15:15 Hgb 13.2 gm/dl (10.1-14.3) 08/19/17 17:49 Hct 40.0 % (30.3-42.9) 08/19/17 17:49 MCV 100 fl (79-97) H 08/18/17 15:15 MCH 31 pg (28-32) 08/18/17 15:15 MCHC 31 % (30-34) 08/18/17 15:15 RDW 14.7 % (13.2-15.2) 08/18/17 15:15 Plt Count 201 K/mm3 (140-440) 08/19/17 17:49 Lymph % (Auto) Horse Buyer 08/18/17 15:15 Leslie % (Auto) Horse Buyer 08/18/17 15:15 Eos % (Auto) Horse Buyer 08/18/17 15:15 Lymph # Horse Buyer 08/18/17 15:15 Baso # Horse Buyer 08/18/17 15:15 Add Manual Diff Complete 08/18/17 15:15 Total Counted 100 08/18/17 15:15 Seg Neutrophils % Horse Buyer 08/18/17 15:15 Seg Neuts % (Manual) 34.0 % (40.0-70.0) L 08/18/17 15:15 Band Neutrophils % 1.0 % 08/18/17 15:15 Lymphocytes % (Manual) 59.0 % (13.4-35.0) H 08/18/17 15:15 Reactive Lymphs % (Man) 0 % 08/18/17 15:15 Monocytes % (Manual) 3.0 % (0.0-7.3) 08/18/17 15:15 Eosinophils % (Manual) 2.0 % (0.0-4.3) 08/18/17 15:15 Basophils % (Manual) 0 % (0.0-1.8) 08/18/17 15:15 Metamyelocytes % 1.0 % 08/18/17 15:15 Myelocytes % 0 % 08/18/17 15:15 Promyelocytes % 0 % 08/18/17 15:15 Blast Cells % 0 % 08/18/17 15:15 Nucleated RBC % Not Reportable 08/18/17 15:15 Seg Neutrophils # Man 3.4 K/mm3 (1.8-7.7) 08/18/17 15:15 Band Neutrophils # 0.1 K/mm3 08/18/17 15:15 Lymphocytes # (Manual) 6.0 K/mm3 (1.2-5.4) H 08/18/17 15:15 Abs React Lymphs (Man) 0.0 K/mm3 08/18/17 15:15 Monocytes # (Manual) 0.3 K/mm3 (0.0-0.8) 08/18/17 15:15 Eosinophils # (Manual) 0.2 K/mm3 (0.0-0.4) 08/18/17 15:15 Basophils # (Manual) 0.0 K/mm3 (0.0-0.1) 08/18/17 15:15 Metamyelocytes # 0.1 K/mm3 08/18/17 15:15 Myelocytes # 0.0 K/mm3 08/18/17 15:15 Promyelocytes # 0.0 K/mm3 08/18/17 15:15 Blast Cells # 0.0 K/mm3 08/18/17 15:15 WBC Morphology Not Reportable 08/18/17 15:15 Hypersegmented Neuts Not Reportable 08/18/17 15:15 Hyposegmented Neuts Not Reportable 08/18/17 15:15 Hypogranular Neuts Not Reportable 08/18/17 15:15 Smudge Cells Not Reportable 08/18/17 15:15 Toxic Granulation Not Reportable 08/18/17 15:15 Toxic Vacuolation Not Reportable 08/18/17 15:15 Dohle Bodies Not Reportable 08/18/17 15:15 Pelger-Huet Anomaly Not Reportable 08/18/17 15:15 Andre Rods Not Reportable 08/18/17 15:15 Platelet Estimate Appears normal 08/18/17 15:15 Clumped Platelets Not Reportable 08/18/17 15:15 Plt Clumps, EDTA Not Reportable 08/18/17 15:15 Large Platelets Not Reportable 08/18/17 15:15 Giant Platelets Not Reportable 08/18/17 15:15 Platelet Satelliting Not Reportable 08/18/17 15:15 Plt Morphology Comment Not Reportable 08/18/17 15:15 RBC Morphology Normal 08/18/17 15:15 Dimorphic RBCs Not Reportable 08/18/17 15:15 Polychromasia Not Reportable 08/18/17 15:15 Hypochromasia Not Reportable 08/18/17 15:15 Poikilocytosis Not Reportable 08/18/17 15:15 Anisocytosis Not Reportable 08/18/17 15:15 Microcytosis Not Reportable 08/18/17 15:15 Macrocytosis Not Reportable 08/18/17 15:15 Spherocytes Not Reportable 08/18/17 15:15 Pappenheimer Bodies Not Reportable 08/18/17 15:15 Sickle Cells Not Reportable 08/18/17 15:15 Target Cells Not Reportable 08/18/17 15:15 Tear Drop Cells Not Reportable 08/18/17 15:15 Ovalocytes Not Reportable 08/18/17 15:15 Helmet Cells Not Reportable 08/18/17 15:15 Ziegler-Quimby Bodies Not Reportable 08/18/17 15:15 Gilchrist Rings Not Reportable 08/18/17 15:15 Myrna Cells Not Reportable 08/18/17 15:15 Bite Cells Not Reportable 08/18/17 15:15 Crenated Cell Not Reportable 08/18/17 15:15 Elliptocytes Not Reportable 08/18/17 15:15 Acanthocytes (Spur) Not Reportable 08/18/17 15:15 Rouleaux Not Reportable 08/18/17 15:15 Hemoglobin C Crystals Not Reportable 08/18/17 15:15 Schistocytes Not Reportable 08/18/17 15:15 Malaria parasites Not Reportable 08/18/17 15:15 Keith Bodies Not Reportable 08/18/17 15:15 Hem Pathologist Commnt No 08/18/17 15:15 PT 16.8 Sec. (12.2-14.9) H 08/19/17 17:49 INR 1.29 (0.87-1.13) H 08/19/17 17:49 APTT 43.9 Sec. (24.2-36.6) H 08/19/17 17:49 D-Dimer > 75261 ng/mlDDU (0-234) H 08/18/17 15:15 Heparin Anti-Xa Level 0.53 U.I./ml (0.3-0.7) 08/20/17 06:15 POC ABG pH 7.401 (7.35-7.45) 08/20/17 04:11 POC ABG pCO2 44.2 (35-45) 08/20/17 04:11 POC ABG pO2 137 (80-105) H 08/20/17 04:11 POC ABG HCO3 27.4 08/20/17 04:11 POC ABG Total CO2 29 08/20/17 04:11 POC ABG O2 Sat 99 08/20/17 04:11 POC ABG Base Excess 3 08/20/17 04:11 VBG pH 6.787 (7.320-7.420) L* 08/18/17 15:15 FiO2 35 % 08/20/17 04:11 Sodium 154 mmol/L (137-145) H D 08/19/17 06:15 Potassium 3.5 mmol/L (3.6-5.0) L 08/19/17 06:15 Chloride 113.7 mmol/L (98-107) H 08/19/17 06:15 Carbon Dioxide 24 mmol/L (22-30) D 08/19/17 06:15 Anion Gap 20 mmol/L 08/19/17 06:15 BUN 26 mg/dL (7-17) H 08/19/17 06:15 Creatinine 1.6 mg/dL (0.7-1.2) H 08/19/17 06:15 Estimated GFR 40 ml/min 08/19/17 06:15 BUN/Creatinine Ratio 16 % 08/19/17 06:15 Glucose 204 mg/dL (65-100) H 08/19/17 06:15 POC Glucose 166 (70-105) H 08/18/17 22:20 Lactic Acid 1.70 mmol/L (0.7-2.0) 08/19/17 14:54 Calcium 7.8 mg/dL (8.4-10.2) L 08/19/17 06:15 Total Bilirubin 0.60 mg/dL (0.1-1.2) 08/19/17 06:15 AST 206 units/L (5-40) H 08/19/17 06:15 ALT 217 units/L (7-56) H 08/19/17 06:15 Alkaline Phosphatase 96 units/L (35-129) 08/19/17 06:15 Total Creatine Kinase 2322 units/L (30-135) H 08/19/17 17:49 CK-MB (CK-2) 10.9 ng/mL (0.0-4.0) H 08/19/17 17:49 CK-MB (CK-2) Rel Index 0.4 (0-4) 08/19/17 17:49 Troponin T 0.231 ng/mL (0.00-0.029) H* D 08/19/17 17:49 NT-Pro-B Natriuret Pep < 5 pg/mL (0-900) 08/18/17 15:15 Total Protein 5.9 g/dL (6.3-8.2) L 08/19/17 06:15 Albumin 3.3 g/dL (3.9-5) L 08/19/17 06:15 Albumin/Globulin Ratio 1.3 % 08/19/17 06:15 Triglycerides 48 mg/dL (2-149) 08/18/17 17:54 Cholesterol 134 mg/dL (50-199) 08/18/17 17:54 LDL Cholesterol Direct 83 mg/dL (50-130) 08/18/17 17:54 HDL Cholesterol 49 mg/dL (40-59) 08/18/17 17:54 Cholesterol/HDL Ratio 2.73 % 08/18/17 17:54 Urine Color Yellow (Yellow) 08/18/17 15:49 Urine Turbidity Clear (Clear) 08/18/17 15:49 Urine pH 6.0 (5.0-7.0) 08/18/17 15:49 Ur Specific [place] 1.021 (1.003-1.030) 08/18/17 15:49 Urine Protein <15 mg/dl mg/dL (Negative) 08/18/17 15:49 Urine Glucose (UA) Neg mg/dL (Negative) 08/18/17 15:49 Urine Ketones Neg mg/dL (Negative) 08/18/17 15:49 Urine Blood Neg (Negative) 08/18/17 15:49 Urine Nitrite Neg (Negative) 08/18/17 15:49 Urine Bilirubin Neg (Negative) 08/18/17 15:49 Urine Urobilinogen 4.0 mg/dL (<2.0) 08/18/17 15:49 Ur Leukocyte Esterase Neg (Negative) 08/18/17 15:49 Urine WBC (Auto) 1.0 /HPF (0.0-6.0) 08/18/17 15:49 Urine RBC (Auto) 1.0 /HPF (0.0-6.0) 08/18/17 15:49 U Epithel Cells (Auto) < 1.0 /HPF (0-13.0) 08/18/17 15:49 Urine Mucus Few /HPF 08/18/17 15:49
--- NOTE | 2017-08-20 11:33 | Progress Note ---
Assessment and Plan Assessment: S/p PEA arrest NSTEMI type I Abnormal ECG Acute respiratory failure - intubated PNA - ? aspiration AMS - head CT c/w diffuse anoxic injury Metabolic acidosis Hypernatremia Hypotension - requiring vasopressor suppport Elevated DDimer - chest CTA negative for PE H/o asthma Plan: ECG improved this AM. Talha trending down. Echo reviewed - 60-65%, mild TR. Cont heparin gtt. Continue supportive management. Consider ischemic evaluation once medically stabilized. The patient has been seen in conjunction with Dr. Morton who agrees with the assessment and plan of care. Subjective Date of service: 08/20/17 Principal diagnosis: Anoxic brain injury. Interval history: pt remains intubated, off sedation, nonresponsive, on vasopressors. no family at bedside. Objective Last Vital Signs Temp 95.5 F L 08/20/17 08:00 Pulse 82 08/20/17 09:21 Resp 17 08/20/17 09:21 BP 102/66 08/20/17 08:57 Pulse Ox 100 08/20/17 08:57 - Physical Examination General: Other (intubated, nonresponsive) HEENT: Positive: Other (fixed, dilated) Neck: Positive: neck supple, trachea midline Cardiac: Positive: Reg Rate and Rhythm, S1/S2 Lungs: Positive: Decreased Breath Sounds, Ventilated Respirations Neuro: Positive: Other (unresponsive) Skin: Positive: Clear. Negative: Rash, Wound Musculoskeletal: No Fluid Collection, No Pain, Normal Range of Motion Extremities: Absent: edema - Labs and Meds Cardiac Enzymes 08/19/17 Range/Units 17:49 CK-MB (CK-2) 10.9 H (0.0-4.0) ng/mL Coagulation 08/19/17 Range/Units 17:49 PT 16.8 H (12.2-14.9) Sec. INR 1.29 H (0.87-1.13) APTT 43.9 H (24.2-36.6) Sec. CBC 08/19/17 Range/Units 17:49 Hgb 13.2 (10.1-14.3) gm/dl Hct 40.0 (30.3-42.9) % Plt Count 201 (140-440) K/mm3 - Imaging and Cardiology EKG: report reviewed, image reviewed Echo: report reviewed (60-65%, mild TR) - Telemetry EKG Rhythm: Sinus Rhythm - EKG Sinus rhythms and dysrhythmias: sinus rhythm Repolarization changes or abnormalities: ST or T wave suggestive of ischemia ( diffuse)
--- NOTE | 2017-08-20 12:40 | Nuclear Medicine Report ---
NUCLEAR MEDICINE BRAIN FLOW STUDY HISTORY: Evaluate for brain , anoxic brain injury. FINDINGS: CT head dated 08/18/17 was reviewed. The images demonstrate no appreciable blood flow overlying the right and left cerebral hemispheres. The images demonstrate relatively normal perfusion overlying the bilateral common carotid arteries and external carotid artery territories. IMPRESSION: No evidence for intracranial blood flow.
[2017-08-20 13:49] LABS: Albumin 2.8 g/dL (3.9-5); Calcium 7.8 mg/dL (8.4-10.2)
[2017-08-20] MEDS: HEPARIN/ 0.45% NACL-25,000 UNIT/500 ML 25,000 UNIT/500 ML BAG IV SCH (17:32)
[2017-08-21 00:48] LABS: Basophils % (Auto) 0.5 % (0.0-1.8); Eosinophils # (Auto) 0.8 K/mm3 (0.0-0.4); Eosinophils % (Auto) 8.4 % (0.0-4.3); Hematocrit 34.5 % (30.3-42.9); Hemoglobin 11.6 gm/dl (10.1-14.3); Lymphocytes % (Auto) 10.8 % (13.4-35.0); Mean Corpuscular HGB Conc 34 % (30-34); Mean Corpuscular Hemoglobin 31 pg (28-32); Mean Corpuscular Volume 91 fl (79-97); Monocytes # (Auto) 0.6 K/mm3 (0.0-0.8); Monocytes % (Auto) 6.6 % (0.0-7.3); Platelet Count 141 K/mm3 (140-440); Red Blood Count 3.79 M/mm3 (3.65-5.03); Red Cell Distribution Width 14.2 % (13.2-15.2)
[2017-08-21 01:11] LABS: Alanine Aminotransferase 138 units/L (7-56); Albumin 2.9 g/dL (3.9-5); BUN/Creatinine Ratio 17; Blood Urea Nitrogen 19 mg/dL (7-17); Hemolysis Index 5
[2017-08-21] MEDS: DUONEB *Not for PRN Use IH SCH ×3 (01:27→14:32)
--- NOTE | 2017-08-21 03:40 | XRay Report ---
FINAL REPORT PROCEDURE: XR CHEST 1V AP TECHNIQUE: Chest radiograph anteroposterior view. CPT 88588 HISTORY: follow up respiratory failure COMPARISON: No prior studies are available for comparison. FINDINGS: Heart: Normal. Mediastinum/Vessels: Normal. Lungs/Pleural space: There are right perihilar infiltrates. The lungs are well-expanded. There are no pneumothoraces.. Bony thorax: No acute osseous abnormality. Life support devices: The endotracheal tube is in the mid trachea. The NG tube is in the stomach. There is a left-sided central venous catheter. The tip is at the left innominate vein/SVC junction.. IMPRESSION: The heart size is normal.. There are right perihilar infiltrates. The lungs are well-expanded. There are no pneumothoraces.. The endotracheal tube is in the mid trachea. The NG tube is in the stomach. There is a left-sided central venous catheter. The tip is at the left innominate vein/SVC junction..
[2017-08-21 05:45] LABS: Hematocrit 34.1 % (30.3-42.9); Hemoglobin 11.3 gm/dl (10.1-14.3); Mean Corpuscular HGB Conc 33 % (30-34); Mean Corpuscular Hemoglobin 31 pg (28-32); Mean Corpuscular Volume 92 fl (79-97); Platelet Count 150 K/mm3 (140-440); Red Blood Count 3.69 M/mm3 (3.65-5.03); Red Cell Distribution Width 14.3 % (13.2-15.2)
[2017-08-21 06:09] LABS: Albumin 2.8 g/dL (3.9-5); Calcium 8.3 mg/dL (8.4-10.2)
[2017-08-21] MEDS: D5/0.45NS 1,000 ML IV SCH (07:35)
[2017-08-21] MEDS: LEVOPHED DRIP 4 MG/NS 250 ML 4 MG/250 ML BAG IV SCH (08:00)
[2017-08-21] MEDS: PEPCID IV SCH (10:13)
[2017-08-21] MEDS: LEVAQUIN 750MG/150ML 750 MG/150 ML BAG IV SCH (10:13)
[2017-08-21] MEDS: SODIUM CHLORIDE FLUSH SYRINGE 10 ML IV SCH (10:14)
--- NOTE | 2017-08-21 10:28 | Progress Note ---
Assessment and Plan 1. Cardiac respiratory arrest. ICU team. 2. Brain . If needed, can perform apnea test. 3. Plan discussed with her ICU physician and her cousin. 4. Suggest discussing with her family, organ donation or withdrawal life support. 5. Will follow up with you PRN. Subjective Date of service: 08/21/17 (No significant changes since yesterday.) Principal diagnosis: Anoxic brain injury, brain . Interval history: No significant changes since yesterday Objective - Vital Sign Vital Signs - 12hr 08/20/17 08/20/17 08/20/17 22:30 22:45 23:00 Temperature Pulse Rate 83 84 83 Pulse Rate [ Anterior Bilateral Throughout] Respiratory 16 16 16 Rate Respiratory Rate [Anterior Bilateral Throughout] Blood Pressure 112/69 110/74 116/71 O2 Sat by Pulse 97 98 98 Oximetry 08/20/17 08/20/17 08/20/17 23:15 23:25 23:30 Temperature Pulse Rate 83 83 83 Pulse Rate [ Anterior Bilateral Throughout] Respiratory 16 16 Rate Respiratory Rate [Anterior Bilateral Throughout] Blood Pressure 113/76 100/58 111/73 O2 Sat by Pulse 98 99 98 Oximetry 08/20/17 08/21/17 08/21/17 23:45 00:00 00:15 Temperature 96.4 F L Pulse Rate 82 82 86 Pulse Rate [ Anterior Bilateral Throughout] Respiratory 16 16 16 Rate Respiratory Rate [Anterior Bilateral Throughout] Blood Pressure 111/74 113/75 96/57 O2 Sat by Pulse 98 99 97 Oximetry 08/21/17 08/21/17 08/21/17 00:30 00:45 01:00 Temperature Pulse Rate 86 85 86 Pulse Rate [ Anterior Bilateral Throughout] Respiratory 16 16 16 Rate Respiratory Rate [Anterior Bilateral Throughout] Blood Pressure 137/81 137/81 133/81 O2 Sat by Pulse 98 100 97 Oximetry 08/21/17 08/21/17 08/21/17 01:15 01:27 01:30 Temperature Pulse Rate 87 86 Pulse Rate [ 86 Anterior Bilateral Throughout] Respiratory 16 16 Rate Respiratory 16 Rate [Anterior Bilateral Throughout] Blood Pressure 133/81 126/72 O2 Sat by Pulse 99 97 Oximetry 08/21/17 08/21/17 08/21/17 01:42 01:45 02:00 Temperature Pulse Rate 87 88 Pulse Rate [ 88 Anterior Bilateral Throughout] Respiratory 16 16 Rate Respiratory 16 Rate [Anterior Bilateral Throughout] Blood Pressure 126/72 122/73 O2 Sat by Pulse 99 97 Oximetry 08/21/17 08/21/17 08/21/17 02:15 02:30 02:45 Temperature Pulse Rate 88 88 88 Pulse Rate [ Anterior Bilateral Throughout] Respiratory 16 16 16 Rate Respiratory Rate [Anterior Bilateral Throughout] Blood Pressure 120/74 131/77 131/77 O2 Sat by Pulse 97 97 99 Oximetry 08/21/17 08/21/17 08/21/17 03:00 03:15 03:30 Temperature Pulse Rate 87 87 87 Pulse Rate [ Anterior Bilateral Throughout] Respiratory 16 16 16 Rate Respiratory Rate [Anterior Bilateral Throughout] Blood Pressure 116/70 122/78 123/72 O2 Sat by Pulse 97 97 Oximetry 08/21/17 08/21/17 08/21/17 03:45 03:59 04:00 Temperature 96.5 F L Pulse Rate 88 87 87 Pulse Rate [ Anterior Bilateral Throughout] Respiratory 16 16 Rate Respiratory Rate [Anterior Bilateral Throughout] Blood Pressure 125/75 105/60 136/80 O2 Sat by Pulse 97 99 99 Oximetry 08/21/17 08/21/17 08/21/17 04:15 04:30 04:45 Temperature Pulse Rate 87 86 87 Pulse Rate [ Anterior Bilateral Throughout] Respiratory 16 16 16 Rate Respiratory Rate [Anterior Bilateral Throughout] Blood Pressure 124/73 126/74 126/75 O2 Sat by Pulse 98 98 98 Oximetry 08/21/17 08/21/17 08/21/17 05:00 05:15 05:30 Temperature Pulse Rate 86 87 86 Pulse Rate [ Anterior Bilateral Throughout] Respiratory 16 16 16 Rate Respiratory Rate [Anterior Bilateral Throughout] Blood Pressure 123/74 125/74 123/72 O2 Sat by Pulse 98 98 98 Oximetry 08/21/17 08/21/17 08/21/17 05:46 06:00 06:16 Temperature Pulse Rate 86 87 88 Pulse Rate [ Anterior Bilateral Throughout] Respiratory 16 16 16 Rate Respiratory Rate [Anterior Bilateral Throughout] Blood Pressure 106/58 124/74 124/74 O2 Sat by Pulse 97 96 97 Oximetry 08/21/17 08/21/17 08/21/17 06:30 06:45 07:00 Temperature Pulse Rate 86 85 86 Pulse Rate [ Anterior Bilateral Throughout] Respiratory 16 16 16 Rate Respiratory Rate [Anterior Bilateral Throughout] Blood Pressure 119/68 114/67 118/68 O2 Sat by Pulse 97 96 97 Oximetry 08/21/17 08/21/17 08/21/17 07:15 07:30 07:45 Temperature Pulse Rate 85 84 84 Pulse Rate [ Anterior Bilateral Throughout] Respiratory 16 16 16 Rate Respiratory Rate [Anterior Bilateral Throughout] Blood Pressure 121/70 112/61 115/69 O2 Sat by Pulse 98 97 98 Oximetry 08/21/17 08/21/17 08/21/17 08:00 08:15 08:30 Temperature 97.3 F L Pulse Rate 84 83 83 Pulse Rate [ Anterior Bilateral Throughout] Respiratory 16 16 16 Rate Respiratory Rate [Anterior Bilateral Throughout] Blood Pressure 114/73 114/71 121/73 O2 Sat by Pulse 97 97 97 Oximetry 08/21/17 08/21/17 08/21/17 08:45 08:53 08:55 Temperature Pulse Rate 83 82 Pulse Rate [ 82 Anterior Bilateral Throughout] Respiratory 16 Rate Respiratory 16 Rate [Anterior Bilateral Throughout] Blood Pressure 118/71 118/71 O2 Sat by Pulse 98 99 Oximetry 08/21/17 08/21/17 08/21/17 09:00 09:08 09:15 Temperature Pulse Rate 82 82 Pulse Rate [ 82 Anterior Bilateral Throughout] Respiratory 16 16 Rate Respiratory 16 Rate [Anterior Bilateral Throughout] Blood Pressure 122/74 113/71 O2 Sat by Pulse 97 98 Oximetry 08/21/17 08/21/17 08/21/17 09:30 09:45 10:00 Temperature Pulse Rate 82 82 82 Pulse Rate [ Anterior Bilateral Throughout] Respiratory 16 16 16 Rate Respiratory Rate [Anterior Bilateral Throughout] Blood Pressure 115/76 120/73 122/77 O2 Sat by Pulse 98 98 99 Oximetry - Respiratory Respiratory: lungs clear - Cardiovascular Cardiovascular: regular rate, no murmurs - Neurologic [place] Coma Scale (3-15): 3 (Per her clinical examination, consistent with brain .) - Laboratory Findings CBC and BMP: 08/21/17 05:05 08/21/17 05:05 Abnormal Lab Findings: Abnormal Labs 08/18/17 08/18/17 08/18/17 15:15 15:15 15:15 MCV 100 H Lymph % (Auto) Eos % (Auto) Lymph # Eos # Seg Neutrophils % Seg Neuts % (Manual) 34.0 L Lymphocytes % (Manual) 59.0 H Lymphocytes # (Manual) 6.0 H PT 18.2 H INR 1.42 H APTT D-Dimer > 63546 H POC ABG pH POC ABG pCO2 POC ABG pO2 VBG pH Sodium Potassium Chloride 95.7 L Carbon Dioxide 15 L BUN Creatinine Glucose 480 H POC Glucose Lactic Acid Calcium 7.9 L AST 55 H ALT 72 H Total Creatine Kinase CK-MB (CK-2) Troponin T Total Protein 5.6 L Albumin 3.3 L 08/18/17 08/18/17 08/18/17 15:15 15:15 15:15 MCV Lymph % (Auto) Eos % (Auto) Lymph # Eos # Seg Neutrophils % Seg Neuts % (Manual) Lymphocytes % (Manual) Lymphocytes # (Manual) PT INR APTT D-Dimer POC ABG pH POC ABG pCO2 POC ABG pO2 VBG pH 6.787 L* Sodium Potassium Chloride Carbon Dioxide BUN Creatinine Glucose POC Glucose Lactic Acid 13.90 H* Calcium AST ALT Total Creatine Kinase 170 H CK-MB (CK-2) Troponin T Total Protein Albumin 08/18/17 08/18/17 08/18/17 16:21 16:22 17:54 MCV Lymph % (Auto) Eos % (Auto) Lymph # Eos # Seg Neutrophils % Seg Neuts % (Manual) Lymphocytes % (Manual) Lymphocytes # (Manual) PT INR APTT D-Dimer POC ABG pH 7.161 L POC ABG pCO2 73.3 H POC ABG pO2 243 H VBG pH Sodium Potassium Chloride Carbon Dioxide BUN Creatinine Glucose POC Glucose Lactic Acid 8.30 H* 6.00 H* Calcium AST ALT Total Creatine Kinase CK-MB (CK-2) Troponin T Total Protein Albumin 08/18/17 08/18/17 08/18/17 17:54 18:50 21:55 MCV Lymph % (Auto) Eos % (Auto) Lymph # Eos # Seg Neutrophils % Seg Neuts % (Manual) Lymphocytes % (Manual) Lymphocytes # (Manual) PT INR APTT D-Dimer POC ABG pH POC ABG pCO2 POC ABG pO2 VBG pH Sodium Potassium Chloride Carbon Dioxide BUN Creatinine Glucose POC Glucose Lactic Acid 4.70 H* Calcium AST ALT Total Creatine Kinase CK-MB (CK-2) Troponin T 0.275 H* D 0.858 H* D Total Protein Albumin 08/18/17 08/18/17 08/19/17 21:55 22:20 01:25 MCV Lymph % (Auto) Eos % (Auto) Lymph # Eos # Seg Neutrophils % Seg Neuts % (Manual) Lymphocytes % (Manual) Lymphocytes # (Manual) PT INR APTT D-Dimer POC ABG pH POC ABG pCO2 50.0 H POC ABG pO2 VBG pH Sodium Potassium Chloride Carbon Dioxide BUN Creatinine Glucose POC Glucose 166 H Lactic Acid 4.40 H* Calcium AST ALT Total Creatine Kinase CK-MB (CK-2) Troponin T Total Protein Albumin 08/19/17 08/19/17 08/19/17 05:33 06:15 06:15 MCV Lymph % (Auto) Eos % (Auto) Lymph # Eos # Seg Neutrophils % Seg Neuts % (Manual) Lymphocytes % (Manual) Lymphocytes # (Manual) PT INR APTT D-Dimer POC ABG pH 7.488 H POC ABG pCO2 33.1 L POC ABG pO2 173 H VBG pH Sodium 154 H D Potassium 3.5 L Chloride 113.7 H Carbon Dioxide BUN 26 H Creatinine 1.6 H Glucose 204 H POC Glucose Lactic Acid 2.70 H* Calcium 7.8 L AST 206 H ALT 217 H Total Creatine Kinase CK-MB (CK-2) Troponin T Total Protein 5.9 L Albumin 3.3 L 08/19/17 08/19/17 08/20/17 17:49 17:49 04:11 MCV Lymph % (Auto) Eos % (Auto) Lymph # Eos # Seg Neutrophils % Seg Neuts % (Manual) Lymphocytes % (Manual) Lymphocytes # (Manual) PT 16.8 H INR 1.29 H APTT 43.9 H D-Dimer POC ABG pH POC ABG pCO2 POC ABG pO2 137 H VBG pH Sodium Potassium Chloride Carbon Dioxide BUN Creatinine Glucose POC Glucose Lactic Acid Calcium AST ALT Total Creatine Kinase 2322 H CK-MB (CK-2) 10.9 H Troponin T 0.231 H* D Total Protein Albumin 08/20/17 08/20/17 08/21/17 13:12 23:28 00:20 MCV Lymph % (Auto) 10.8 L Eos % (Auto) 8.4 H Lymph # 1.0 L Eos # 0.8 H Seg Neutrophils % 73.7 H Seg Neuts % (Manual) Lymphocytes % (Manual) Lymphocytes # (Manual) PT INR APTT D-Dimer POC ABG pH POC ABG pCO2 POC ABG pO2 VBG pH Sodium 148 H Potassium 3.4 L Chloride 112.0 H Carbon Dioxide BUN 23 H Creatinine 1.3 H Glucose 153 H POC Glucose 170 H Lactic Acid Calcium 7.8 L AST 103 H ALT 145 H Total Creatine Kinase CK-MB (CK-2) Troponin T Total Protein 5.6 L Albumin 2.8 L 08/21/17 08/21/17 08/21/17 00:20 04:04 05:05 MCV Lymph % (Auto) Eos % (Auto) Lymph # Eos # Seg Neutrophils % Seg Neuts % (Manual) Lymphocytes % (Manual) Lymphocytes # (Manual) PT INR APTT D-Dimer POC ABG pH 7.345 L POC ABG pCO2 POC ABG pO2 VBG pH Sodium 147 H 147 H Potassium 3.5 L 3.5 L Chloride 113.2 H 114.0 H Carbon Dioxide 21 L 20 L BUN 19 H 18 H Creatinine Glucose 166 H 175 H POC Glucose Lactic Acid Calcium 8.0 L 8.3 L AST 78 H 72 H ALT 138 H 130 H Total Creatine Kinase CK-MB (CK-2) Troponin T Total Protein 5.1 L 5.6 L Albumin 2.9 L 2.8 L 08/21/17 05:46 MCV Lymph % (Auto) Eos % (Auto) Lymph # Eos # Seg Neutrophils % Seg Neuts % (Manual) Lymphocytes % (Manual) Lymphocytes # (Manual) PT INR APTT D-Dimer POC ABG pH POC ABG pCO2 POC ABG pO2 VBG pH Sodium Potassium Chloride Carbon Dioxide BUN Creatinine Glucose POC Glucose 190 H Lactic Acid Calcium AST ALT Total Creatine Kinase CK-MB (CK-2) Troponin T Total Protein Albumin
--- NOTE | 2017-08-21 12:35 | Progress Note ---
Assessment and Plan Assessment: S/p PEA arrest NSTEMI type I Abnormal ECG Acute respiratory failure - intubated PNA - ? aspiration AMS - head CT c/w diffuse anoxic injury Metabolic acidosis Hypernatremia Hypotension - requiring vasopressor suppport Elevated DDimer - chest CTA negative for PE H/o asthma Plan: Pt declared brain per neurology. Family to withdraw care at 5PM today per primary RN. D/c heparin gtt. Continue supportive management. The patient has been seen in conjunction with Dr. Morton who agrees with the assessment and plan of care. Subjective Date of service: 08/21/17 Principal diagnosis: Anoxic brain injury, brain . Interval history: pt remains intubated, off sedation, nonresponsive, on vasopressors. Family at bedside. Objective Last Vital Signs Temp 97.4 F L 08/21/17 11:54 Pulse 79 08/21/17 11:45 Resp 16 08/21/17 10:05 BP 112/71 08/21/17 11:45 Pulse Ox 97 08/21/17 11:45 - Physical Examination General: Other (intubated, nonresponsive) HEENT: Positive: Other (fixed, dilated) Neck: Positive: neck supple, trachea midline Cardiac: Positive: Reg Rate and Rhythm, S1/S2 Lungs: Positive: Decreased Breath Sounds Neuro: Positive: Other (unresponsive) Skin: Positive: Clear. Negative: Rash, Wound Musculoskeletal: No Fluid Collection, No Pain, Normal Range of Motion Extremities: Absent: edema - Labs and Meds Cardiac Enzymes 08/20/17 08/21/17 08/21/17 Range/Units 13:12 00:20 05:05 AST 103 H 78 H 72 H (5-40) units/L CBC 08/21/17 08/21/17 Range/Units 00:20 05:05 WBC 9.0 9.2 (4.5-11.0) K/mm3 RBC 3.79 3.69 (3.65-5.03) M/mm3 Hgb 11.6 11.3 (10.1-14.3) gm/dl Hct 34.5 34.1 (30.3-42.9) % Plt Count 141 150 (140-440) K/mm3 Lymph # 1.0 L (1.2-5.4) K/mm3 Moca # 0.6 (0.0-0.8) K/mm3 Eos # 0.8 H (0.0-0.4) K/mm3 Baso # 0.0 (0.0-0.1) K/mm3 Comprehensive Metabolic Panel 08/20/17 08/21/17 08/21/17 Range/Units 13:12 00:20 05:05 Sodium 148 H 147 H 147 H (137-145) mmol/L Potassium 3.4 L 3.5 L 3.5 L (3.6-5.0) mmol/L Chloride 112.0 H 113.2 H 114.0 H (98-107) mmol/L Carbon Dioxide 23 21 L 20 L (22-30) mmol/L BUN 23 H 19 H 18 H (7-17) mg/dL Creatinine 1.3 H 1.1 1.2 (0.7-1.2) mg/dL Glucose 153 H 166 H 175 H (65-100) mg/dL Calcium 7.8 L 8.0 L 8.3 L (8.4-10.2) mg/dL AST 103 H 78 H 72 H (5-40) units/L ALT 145 H 138 H 130 H (7-56) units/L Alkaline Phosphatase 82 93 92 (35-129) units/L Total Protein 5.6 L 5.1 L 5.6 L (6.3-8.2) g/dL Albumin 2.8 L 2.9 L 2.8 L (3.9-5) g/dL - Imaging and Cardiology EKG: report reviewed, image reviewed Echo: report reviewed (60-65%, mild TR) - Telemetry EKG Rhythm: Sinus Rhythm - EKG Sinus rhythms and dysrhythmias: sinus rhythm Repolarization changes or abnormalities: ST or T wave suggestive of ischemia ( diffuse)
--- NOTE | 2017-08-21 12:56 | Progress Note ---
Assessment and Plan Cardiopulmonary arrest, PEA Acute Respiratory failure with hypoxia Aspiration pneumonia Shock multifactorial Aspiration pneumonia Metabolic acidosis, secondary to hypoperfusion Elevated troponin Hypernatremia, on hypotonic fluid NIRANJAN, likely tubular necrosis from hypotension(improving Cr) (Brain documented and tentative withdrawal at 5pm today; for now) - Continue with mechanical ventilatory support - continue supplemental oxygen to keep O2 sats>94% - continue heparin infusion - continue moncada catheter in this patient critically ill patient - continue supportive care - continue vasopressor support to keep MAP>65 - Monitor and correct all electrolyte abnormality - Empiric antibiotics ....mother at bedside and condolences offered / comforted ... 35' CCT Subjective Date of service: 08/21/17 Principal diagnosis: Anoxic brain injury, brain . Interval history: Patient seen today for: Acute hypoxic respiratory failure, Acute Encephalopathy with brain Seen and examined at bedside; 24-hour events reviewed; nursing and respiratory care staff consulted; no adverse overnight events reported to me; remains on MVS ; s/p NM brain flow without significant intracranial flow; family informed of clinical and radiographic documentation and have requested time for lucas family to be present before withdrawal of vasopressors and MVS; life-link evaluated also Objective Vital Signs - 12hr 08/21/17 08/21/17 08/21/17 01:00 01:15 01:27 Temperature Pulse Rate 86 87 Pulse Rate [ 86 Anterior Bilateral Throughout] Respiratory 16 16 Rate Respiratory 16 Rate [Anterior Bilateral Throughout] Blood Pressure 133/81 133/81 O2 Sat by Pulse 97 99 Oximetry 08/21/17 08/21/17 08/21/17 01:30 01:42 01:45 Temperature Pulse Rate 86 87 Pulse Rate [ 88 Anterior Bilateral Throughout] Respiratory 16 16 Rate Respiratory 16 Rate [Anterior Bilateral Throughout] Blood Pressure 126/72 126/72 O2 Sat by Pulse 97 99 Oximetry 08/21/17 08/21/17 08/21/17 02:00 02:15 02:30 Temperature Pulse Rate 88 88 88 Pulse Rate [ Anterior Bilateral Throughout] Respiratory 16 16 16 Rate Respiratory Rate [Anterior Bilateral Throughout] Blood Pressure 122/73 120/74 131/77 O2 Sat by Pulse 97 97 97 Oximetry 08/21/17 08/21/17 08/21/17 02:45 03:00 03:15 Temperature Pulse Rate 88 87 87 Pulse Rate [ Anterior Bilateral Throughout] Respiratory 16 16 16 Rate Respiratory Rate [Anterior Bilateral Throughout] Blood Pressure 131/77 116/70 122/78 O2 Sat by Pulse 99 97 Oximetry 08/21/17 08/21/17 08/21/17 03:30 03:45 03:59 Temperature Pulse Rate 87 88 87 Pulse Rate [ Anterior Bilateral Throughout] Respiratory 16 16 Rate Respiratory Rate [Anterior Bilateral Throughout] Blood Pressure 123/72 125/75 105/60 O2 Sat by Pulse 97 97 99 Oximetry 08/21/17 08/21/17 08/21/17 04:00 04:15 04:30 Temperature 96.5 F L Pulse Rate 87 87 86 Pulse Rate [ Anterior Bilateral Throughout] Respiratory 16 16 16 Rate Respiratory Rate [Anterior Bilateral Throughout] Blood Pressure 136/80 124/73 126/74 O2 Sat by Pulse 99 98 98 Oximetry 08/21/17 08/21/17 08/21/17 04:45 05:00 05:15 Temperature Pulse Rate 87 86 87 Pulse Rate [ Anterior Bilateral Throughout] Respiratory 16 16 16 Rate Respiratory Rate [Anterior Bilateral Throughout] Blood Pressure 126/75 123/74 125/74 O2 Sat by Pulse 98 98 98 Oximetry 08/21/17 08/21/17 08/21/17 05:30 05:46 06:00 Temperature Pulse Rate 86 86 87 Pulse Rate [ Anterior Bilateral Throughout] Respiratory 16 16 16 Rate Respiratory Rate [Anterior Bilateral Throughout] Blood Pressure 123/72 106/58 124/74 O2 Sat by Pulse 98 97 96 Oximetry 08/21/17 08/21/17 08/21/17 06:16 06:30 06:45 Temperature Pulse Rate 88 86 85 Pulse Rate [ Anterior Bilateral Throughout] Respiratory 16 16 16 Rate Respiratory Rate [Anterior Bilateral Throughout] Blood Pressure 124/74 119/68 114/67 O2 Sat by Pulse 97 97 96 Oximetry 08/21/17 08/21/17 08/21/17 07:00 07:15 07:30 Temperature Pulse Rate 86 85 84 Pulse Rate [ Anterior Bilateral Throughout] Respiratory 16 16 16 Rate Respiratory Rate [Anterior Bilateral Throughout] Blood Pressure 118/68 121/70 112/61 O2 Sat by Pulse 97 98 97 Oximetry 08/21/17 08/21/17 08/21/17 07:45 07:50 08:00 Temperature 97.3 F L Pulse Rate 84 84 Pulse Rate [ Anterior Bilateral Throughout] Respiratory 16 16 16 Rate Respiratory Rate [Anterior Bilateral Throughout] Blood Pressure 115/69 114/73 O2 Sat by Pulse 98 95 97 Oximetry 08/21/17 08/21/17 08/21/17 08:15 08:30 08:45 Temperature Pulse Rate 83 83 83 Pulse Rate [ Anterior Bilateral Throughout] Respiratory 16 16 16 Rate Respiratory Rate [Anterior Bilateral Throughout] Blood Pressure 114/71 121/73 118/71 O2 Sat by Pulse 97 97 98 Oximetry 08/21/17 08/21/17 08/21/17 08:53 08:55 09:00 Temperature Pulse Rate 82 82 Pulse Rate [ 82 Anterior Bilateral Throughout] Respiratory 16 Rate Respiratory 16 Rate [Anterior Bilateral Throughout] Blood Pressure 118/71 122/74 O2 Sat by Pulse 99 97 Oximetry 08/21/17 08/21/17 08/21/17 09:08 09:15 09:30 Temperature Pulse Rate 82 82 Pulse Rate [ 82 Anterior Bilateral Throughout] Respiratory 16 16 Rate Respiratory 16 Rate [Anterior Bilateral Throughout] Blood Pressure 113/71 115/76 O2 Sat by Pulse 98 98 Oximetry 08/21/17 08/21/17 08/21/17 09:45 10:00 10:05 Temperature Pulse Rate 82 82 Pulse Rate [ Anterior Bilateral Throughout] Respiratory 16 16 16 Rate Respiratory Rate [Anterior Bilateral Throughout] Blood Pressure 120/73 122/77 O2 Sat by Pulse 98 99 99 Oximetry 08/21/17 08/21/17 11:45 11:54 Temperature 97.4 F L Pulse Rate 79 Pulse Rate [ Anterior Bilateral Throughout] Respiratory Rate Respiratory Rate [Anterior Bilateral Throughout] Blood Pressure 112/71 O2 Sat by Pulse 97 Oximetry Constitutional: no acute distress, comatose, other (unresponsive, orally intubated to MVS) Eyes: non-icteric, other (pupils are fixed and dilated) ENT: oropharynx moist Neck: supple, no lymphadenopathy Effort: other (ventilator driven) Ascultation: Bilateral: rhonchi Percussion: Bilateral: not dull Cardiovascular: regular rate and rhythm, murmur noted (S1,S2 no murmurs) Gastrointestinal: normoactive bowel sounds, soft, non-tender, non-distended Integumentary: normal Extremities: no cyanosis, no edema, pink and warm, pulses normal Neurologic: other (unresponsive, no gag reflex, no cough reflex) Psychiatric: other (unable to assess) CBC and BMP: 08/21/17 05:05 08/21/17 05:05 ABG, PT/INR, D-dimer: ABG POC ABG pH 7.345 (7.35-7.45) L 08/21/17 04:04 POC ABG pCO2 39.1 (35-45) 08/21/17 04:04 POC ABG pO2 94 (80-105) 08/21/17 04:04 POC ABG HCO3 21.3 08/21/17 04:04 POC ABG Total CO2 22 08/21/17 04:04 POC ABG O2 Sat 97 08/21/17 04:04 PT/INR, D-dimer PT 16.8 Sec. (12.2-14.9) H 08/19/17 17:49 INR 1.29 (0.87-1.13) H 08/19/17 17:49 D-Dimer > 89416 ng/mlDDU (0-234) H 08/18/17 15:15 Abnormal lab findings: Abnormal Labs 08/18/17 08/18/17 08/18/17 15:15 15:15 15:15 MCV 100 H Lymph % (Auto) Eos % (Auto) Lymph # Eos # Seg Neutrophils % Seg Neuts % (Manual) 34.0 L Lymphocytes % (Manual) 59.0 H Lymphocytes # (Manual) 6.0 H PT 18.2 H INR 1.42 H APTT D-Dimer > 95259 H POC ABG pH POC ABG pCO2 POC ABG pO2 VBG pH Sodium Potassium Chloride 95.7 L Carbon Dioxide 15 L BUN Creatinine Glucose 480 H POC Glucose Lactic Acid Calcium 7.9 L AST 55 H ALT 72 H Total Creatine Kinase CK-MB (CK-2) Troponin T Total Protein 5.6 L Albumin 3.3 L 08/18/17 08/18/17 08/18/17 15:15 15:15 15:15 MCV Lymph % (Auto) Eos % (Auto) Lymph # Eos # Seg Neutrophils % Seg Neuts % (Manual) Lymphocytes % (Manual) Lymphocytes # (Manual) PT INR APTT D-Dimer POC ABG pH POC ABG pCO2 POC ABG pO2 VBG pH 6.787 L* Sodium Potassium Chloride Carbon Dioxide BUN Creatinine Glucose POC Glucose Lactic Acid 13.90 H* Calcium AST ALT Total Creatine Kinase 170 H CK-MB (CK-2) Troponin T Total Protein Albumin 08/18/17 08/18/17 08/18/17 16:21 16:22 17:54 MCV Lymph % (Auto) Eos % (Auto) Lymph # Eos # Seg Neutrophils % Seg Neuts % (Manual) Lymphocytes % (Manual) Lymphocytes # (Manual) PT INR APTT D-Dimer POC ABG pH 7.161 L POC ABG pCO2 73.3 H POC ABG pO2 243 H VBG pH Sodium Potassium Chloride Carbon Dioxide BUN Creatinine Glucose POC Glucose Lactic Acid 8.30 H* 6.00 H* Calcium AST ALT Total Creatine Kinase CK-MB (CK-2) Troponin T Total Protein Albumin 08/18/17 08/18/17 08/18/17 17:54 18:50 21:55 MCV Lymph % (Auto) Eos % (Auto) Lymph # Eos # Seg Neutrophils % Seg Neuts % (Manual) Lymphocytes % (Manual) Lymphocytes # (Manual) PT INR APTT D-Dimer POC ABG pH POC ABG pCO2 POC ABG pO2 VBG pH Sodium Potassium Chloride Carbon Dioxide BUN Creatinine Glucose POC Glucose Lactic Acid 4.70 H* Calcium AST ALT Total Creatine Kinase CK-MB (CK-2) Troponin T 0.275 H* D 0.858 H* D Total Protein Albumin 08/18/17 08/18/17 08/19/17 21:55 22:20 01:25 MCV Lymph % (Auto) Eos % (Auto) Lymph # Eos # Seg Neutrophils % Seg Neuts % (Manual) Lymphocytes % (Manual) Lymphocytes # (Manual) PT INR APTT D-Dimer POC ABG pH POC ABG pCO2 50.0 H POC ABG pO2 VBG pH Sodium Potassium Chloride Carbon Dioxide BUN Creatinine Glucose POC Glucose 166 H Lactic Acid 4.40 H* Calcium AST ALT Total Creatine Kinase CK-MB (CK-2) Troponin T Total Protein Albumin 08/19/17 08/19/17 08/19/17 05:33 06:15 06:15 MCV Lymph % (Auto) Eos % (Auto) Lymph # Eos # Seg Neutrophils % Seg Neuts % (Manual) Lymphocytes % (Manual) Lymphocytes # (Manual) PT INR APTT D-Dimer POC ABG pH 7.488 H POC ABG pCO2 33.1 L POC ABG pO2 173 H VBG pH Sodium 154 H D Potassium 3.5 L Chloride 113.7 H Carbon Dioxide BUN 26 H Creatinine 1.6 H Glucose 204 H POC Glucose Lactic Acid 2.70 H* Calcium 7.8 L AST 206 H ALT 217 H Total Creatine Kinase CK-MB (CK-2) Troponin T Total Protein 5.9 L Albumin 3.3 L 08/19/17 08/19/17 08/20/17 17:49 17:49 04:11 MCV Lymph % (Auto) Eos % (Auto) Lymph # Eos # Seg Neutrophils % Seg Neuts % (Manual) Lymphocytes % (Manual) Lymphocytes # (Manual) PT 16.8 H INR 1.29 H APTT 43.9 H D-Dimer POC ABG pH POC ABG pCO2 POC ABG pO2 137 H VBG pH Sodium Potassium Chloride Carbon Dioxide BUN Creatinine Glucose POC Glucose Lactic Acid Calcium AST ALT Total Creatine Kinase 2322 H CK-MB (CK-2) 10.9 H Troponin T 0.231 H* D Total Protein Albumin 08/20/17 08/20/17 08/21/17 13:12 23:28 00:20 MCV Lymph % (Auto) 10.8 L Eos % (Auto) 8.4 H Lymph # 1.0 L Eos # 0.8 H Seg Neutrophils % 73.7 H Seg Neuts % (Manual) Lymphocytes % (Manual) Lymphocytes # (Manual) PT INR APTT D-Dimer POC ABG pH POC ABG pCO2 POC ABG pO2 VBG pH Sodium 148 H Potassium 3.4 L Chloride 112.0 H Carbon Dioxide BUN 23 H Creatinine 1.3 H Glucose 153 H POC Glucose 170 H Lactic Acid Calcium 7.8 L AST 103 H ALT 145 H Total Creatine Kinase CK-MB (CK-2) Troponin T Total Protein 5.6 L Albumin 2.8 L 08/21/17 08/21/17 08/21/17 00:20 04:04 05:05 MCV Lymph % (Auto) Eos % (Auto) Lymph # Eos # Seg Neutrophils % Seg Neuts % (Manual) Lymphocytes % (Manual) Lymphocytes # (Manual) PT INR APTT D-Dimer POC ABG pH 7.345 L POC ABG pCO2 POC ABG pO2 VBG pH Sodium 147 H 147 H Potassium 3.5 L 3.5 L Chloride 113.2 H 114.0 H Carbon Dioxide 21 L 20 L BUN 19 H 18 H Creatinine Glucose 166 H 175 H POC Glucose Lactic Acid Calcium 8.0 L 8.3 L AST 78 H 72 H ALT 138 H 130 H Total Creatine Kinase CK-MB (CK-2) Troponin T Total Protein 5.1 L 5.6 L Albumin 2.9 L 2.8 L 08/21/17 08/21/17 05:46 11:37 MCV Lymph % (Auto) Eos % (Auto) Lymph # Eos # Seg Neutrophils % Seg Neuts % (Manual) Lymphocytes % (Manual) Lymphocytes # (Manual) PT INR APTT D-Dimer POC ABG pH POC ABG pCO2 POC ABG pO2 VBG pH Sodium Potassium Chloride Carbon Dioxide BUN Creatinine Glucose POC Glucose 190 H 164 H Lactic Acid Calcium AST ALT Total Creatine Kinase CK-MB (CK-2) Troponin T Total Protein Albumin Chest x-ray: image reviewed
[2017-08-21] MEDS ORDERED: ATIVAN IV PRN (19:27)
[2017-08-21] MEDS ORDERED: SUBLIMAZE IV PRN (19:27)
[2017-08-21 21:09] VITALS: BP 108/62
--- NOTE | 2017-08-22 09:00 | Death Summary ---
Summary - Providers Date of service: 08/21/17 Consults: 08/18/17 15:12 Consult to Dietitian/Nutrition [CONS] Routine Physician Instructions: Reason For Exam: Reason for Consult: Write/Manage Tube Feeding 08/18/17 16:48 Consult to Physician [CONS] Routine Consulting Provider: RODRIGO SALGUERO Reason For Exam: resp failure Place consult to:: [facility]THODONTIST Notified:: Y If yes, spoke with:: DR MELO Time called:: 17:00 08/18/17 23:31 Consult to Cardiology [CONS] Routine Consulting Provider: ALBIN KHAN Reason For Exam: elevated troponin 08/19/17 09:10 Consult to Physician [CONS] Routine Consulting Provider: KATJA BEAVER Reason For Exam: anoxic brain injury/brain ? Place consult to:: general contractor neurology Notified:: Valentina Navarro ext. [phone] Phone number called:: [phone] Attending: AROLDO JARA MD - summary Date of admission: 08/18/17 16:47 Date of : 08/21/17 Significant findings: Patient is a 61-year-old female past medical history of asthma COPD and hypertension who is presenting cardiac arrest. Patient's family called 911 because of diaphoresis and shortness of breath. When EMS arrived they initiated ACLS protocol. The patient was in PEA most of the ride to the emergency department. Patient unfortuanatel was not able to recover, imaging studies of the brain revealed Anoxic brain injury with brain flow scan noting no blood flow. After discussion with the family the patient was terminally extubated. Anoxic brain damage with documented Brain Cardiaopulmonary arrest Cardiogenic shock Aspiration pneumonia Acute Respiratory failure with hypoxia: Metabolic acidosis Type 2 PR hypernatremia, NIRANJAN, likely tubular necrosis from hypotension Pertinent studies: Brain flow scan- no blood flow in brain
== END 2017-08-21 22:30 | DRG 208 ==
LOC: ED 14:49 → CC1 16:47
PROVIDERS: ADMIT Internal Medicine; ATTEND Internal Medicine
PROC: 5A1945Z Respiratory Ventilation, 24-96 Consecutive Hours (ICD-10-PCS; principal; 2017-08-18)
PROC: 0BH17EZ Insertion of Endotracheal Airway into Trachea, Via Natural or Artificial Opening (ICD-10-PCS; 2017-08-18)
PROC: 4A033R1 Measurement of Arterial Saturation, Peripheral, Percutaneous Approach (ICD-10-PCS; 2017-08-18)
PROC: 02HV33Z Insertion of Infusion Device into Superior Vena Cava, Percutaneous Approach (ICD-10-PCS; 2017-08-18)
DX: J69.0 Pneumonitis due to inhalation of food and vomit (principal); J96.01 Acute respiratory failure with hypoxia; I21.A1 Myocardial infarction type 2; N17.0 Acute kidney failure with tubular necrosis; G93.1 Anoxic brain damage, not elsewhere classified; E87.2 Acidosis; E87.0 Hyperosmolality and hypernatremia; I46.9 Cardiac arrest, cause unspecified; J44.9 Chronic obstructive pulmonary disease, unspecified; I10 Essential (primary) hypertension; Z82.49 Family history of ischemic heart disease and other diseases of the circulatory system; Z79.899 Other long term (current) drug therapy
CPT/HCPCS: 36415; 36600; 36620; 70450; 71045; 71275; 74018; 74174; 78601; 80053; 80061; 81001; 82140; 82550; 82553; 82803; 82805; 82962; 83880; 84484; 85007; 85014; 85018; 85025; 85027; 85049; 85379; 85520; 85610; 85730; 87040; 87070; 87086; 87205; 93005; 93010; 93306; 94002; 94003; 94640; 96365; 96366; 99291; A9512; J0171; J0295; J1644; J1956; J2001; J2370; J2543; J7030; J7040; J7120; Q9967